=== PATIENT | female | born 1950 | race Caucasian/White ===

== ENCOUNTER 2017-11-13 19:50 | Observation (INO) | payer MEDICARE ==
[~2017-11-13] VITALS: Ht 162.6 cm; Wt 82.7 kg
[~2017-11-13 19:50] MED LIST: ACET325; AMLO5 PO; Adipex-P37.5 MG; BISA10S; BUPR150ER PO; Bactrim Ds Tab1 EACH PO; CIPR250 PO; Carbidopa-Levo1 EAC1 PO; DIAZ2; DIVA500EC PO; DIVA500ER PO; DOCSEN; ENOX30I; FURO20 PO; GABA100; GABA400; HYDR1TAB94 PO; INSR10I; IPRAOI; LEVSOD88 PO; Lasix20 MG PO; METH10; METH10 PO; METO50; MOMCAS15; MULVITA; OXYC5; PROP120ER PO; Percocet 5-3251 EACH PO; ROPI.25; ROPI.25 PO; ROPI2 PO; SERT100 PO; SERT50 PO; TOPI25
[2017-11-13 20:48] LABS: Source, Urine Voided
[2017-11-13 20:49] LABS: BASOPHILS ABSOLUTE AUTO 0.03 K/mm3 (0.00-0.23); BASOPHILS PERCENT AUTO 0 % (0-2); EOSINOPHILS ABSOLUTE AUTO 0.18 K/mm3 (0.00-0.68); EOSINOPHILS PERCENT AUTO 3 % (0-6); Hemoglobin 14.9 g/dL (11.5-16.0); IMMATURE GRAN ABSOLUTE AUTO 0.02 K/mm3 (0.00-0.10); IMMATURE GRAN PERCENT AUTO 0 % (0-1); LYMPHOCYTES ABSOLUTE AUTO 1.57 K/mm3 (0.84-5.20); LYMPHOCYTES PERCENT AUTO 22 % (21-46); MONOCYTES ABSOLUTE AUTO 0.79 K/mm3 (0.16-1.47); MONOCYTES PERCENT AUTO 11 % (4-13); Mean Corpuscular HGB 30.8 pg (26.0-34.0); Mean Corpuscular HGB Conc 32.4 g/dL (31.5-36.5); Mean Corpuscular Volume 95 fL (80-100); Mean Platelet Volume 10.2 fL (9.1-12.4); NEUTROPHILS ABSOLUTE AUTO 4.71 K/mm3 (1.96-9.15); NEUTROPHILS PERCENT AUTO 65 % (41-73); Platelet Count 196 K/mm3 (150-400); RDW Coefficient Variation 13.1 % (11.7-14.2); RDW Standard Deviation 45.7 fL (35.1-46.3); Red Blood Cell Count 4.84 M/mm3 (3.80-5.20)
[2017-11-13 20:57] LABS: Bilirubin, Urine Neg (Neg); Blood, Urine 1+ (Neg); Glucose Qualitative, Urine Neg (Neg); Ketones, Urine Neg (Neg); Leukocyte Esterase, Urine Neg (Neg); Nitrite, Urine Neg (Neg); Protein, Urine Neg (Neg); Specific Gravity, Urine 1.015 (1.003-1.022); Urobilinogen, Urine NORM (Normal)
[2017-11-13 20:58] LABS: International Normalized Ratio 0.94; Prothrombin Time Results 9.8 Sec (9.7-11.5)
[2017-11-13 21:04] LABS: Alanine Aminotransfer (ALT/SGP 11 U/L (12-78); Albumin, Blood 3.9 g/dL (3.4-5.0); Albumin/Globulin Ratio 1.1 (0.8-1.8); Alk Phos 82 U/L (50-136); Anion Gap 7 mmol/L (6-16); Aspartate Aminotrans (AST/SGOT 17 U/L (12-37); Bilirubin, Total 0.3 mg/dL (0.1-1.0); Blood Urea Nitrogen 13 mg/dL (8-24); Bun/Creatinine Ratio 14.4 (12.0-20.0); CO2, Blood 29 mmol/L (21-32); Calcium, Blood 9.6 mg/dL (8.5-10.1); Chloride, Blood 107 mmol/L (98-108); Globulin, Blood 3.7 g/dL (2.2-4.0); Glomerular Filtration Rate >60 (60-); Glucose, Blood 97 mg/dL (70-99); Potassium, Blood 3.8 mmol/L (3.5-5.5); Sodium, Blood 143 mmol/L (136-145); Total Protein, Blood 7.6 g/dL (6.4-8.2)
[2017-11-13 21:14] LABS: Appearance, Urine Clear (Clear); Color, Urine Yellow (P-Yellow)
[2017-11-13 21:15] LABS: Bacteria Rare /hpf; Squamous Epithelial Cells Few /hpf (Few); White Blood Cells, Urine 0-2 /hpf (0-5)
[2017-11-13] MEDS ORDERED: PRAV20 PO (21:19)
[2017-11-13] MEDS ORDERED: MELA3 PO (21:20)
[2017-11-13] MEDS ORDERED: CHOL10002 PO (21:20)
[2017-11-13] MEDS ORDERED: BUPR150ER PO (21:20)
[2017-11-13] MEDS ORDERED: Desyrel50 MG PO (21:20)
[2017-11-14] MEDS ORDERED: CHOL10002 (00:04)
[2017-11-14] MEDS ORDERED: MELA3 PO (00:05)
[2017-11-14] MEDS ORDERED: POLY500 PO (00:06)
[2017-11-14 04:22] LABS: BASOPHILS ABSOLUTE AUTO 0.03 K/mm3 (0.00-0.23); BASOPHILS PERCENT AUTO 1 % (0-2); EOSINOPHILS ABSOLUTE AUTO 0.17 K/mm3 (0.00-0.68); EOSINOPHILS PERCENT AUTO 3 % (0-6); Hematocrit 43.6 % (33.0-51.0); Hemoglobin 13.8 g/dL (11.5-16.0); IMMATURE GRAN ABSOLUTE AUTO 0.02 K/mm3 (0.00-0.10); IMMATURE GRAN PERCENT AUTO 0 % (0-1); LYMPHOCYTES ABSOLUTE AUTO 1.46 K/mm3 (0.84-5.20); LYMPHOCYTES PERCENT AUTO 26 % (21-46); MONOCYTES ABSOLUTE AUTO 0.61 K/mm3 (0.16-1.47); MONOCYTES PERCENT AUTO 11 % (4-13); Mean Corpuscular HGB 30.1 pg (26.0-34.0); Mean Corpuscular HGB Conc 31.7 g/dL (31.5-36.5); Mean Corpuscular Volume 95 fL (80-100); Mean Platelet Volume 10.1 fL (9.1-12.4); NEUTROPHILS ABSOLUTE AUTO 3.43 K/mm3 (1.96-9.15); NEUTROPHILS PERCENT AUTO 60 % (41-73); Platelet Count 182 K/mm3 (150-400); RDW Coefficient Variation 13.2 % (11.7-14.2); RDW Standard Deviation 46.5 fL (35.1-46.3); Red Blood Cell Count 4.58 M/mm3 (3.80-5.20); White Blood Cell Count 5.72 K/mm3 (4.00-11.30)
[2017-11-14 04:54] LABS: Alanine Aminotransfer (ALT/SGP 10 U/L (12-78); Albumin, Blood 3.6 g/dL (3.4-5.0); Albumin/Globulin Ratio 1.1 (0.8-1.8); Alk Phos 74 U/L (50-136); Anion Gap 6 mmol/L (6-16); Aspartate Aminotrans (AST/SGOT 17 U/L (12-37); Bilirubin, Total 0.5 mg/dL (0.1-1.0); Blood Urea Nitrogen 13 mg/dL (8-24); Bun/Creatinine Ratio 15.2 (12.0-20.0); CO2, Blood 30 mmol/L (21-32); Calcium, Blood 8.8 mg/dL (8.5-10.1); Chloride, Blood 107 mmol/L (98-108); Creatinine, Blood 0.86 mg/dL (0.40-1.00); Globulin, Blood 3.3 g/dL (2.2-4.0); Glomerular Filtration Rate >60 (60-); Glucose, Blood 94 mg/dL (70-99); Potassium, Blood 3.9 mmol/L (3.5-5.5); Sodium, Blood 143 mmol/L (136-145); Total Protein, Blood 6.9 g/dL (6.4-8.2)
[2017-11-14] MEDS ORDERED: Super Calcium600 MG PO (09:49)
[2017-11-14] MEDS ORDERED: Bupropion Xl150 MG PO (09:54)
[2017-11-14] MEDS ORDERED: Hydrocodone-Ap1 EA20 PO (10:32)
[2017-11-14] MEDS ORDERED: CHOL10002 PO (16:12)
[2017-11-14] MEDS ORDERED: Aspir 8181 MG PO (16:13)
[2017-11-14] MEDS ORDERED: CLOP75 PO (16:14)
== END 2017-11-14 16:48 | disposition home or self-care (01) ==
LOC: ER 19:50 → PCU 19:51
PROVIDERS: Emergency Medicine; Internal Medicine
DX: G45.9 Transient cerebral ischemic attack, unspecified (principal); G20 Parkinson's disease; G25.0 Essential tremor; I10 Essential (primary) hypertension; E78.5 Hyperlipidemia, unspecified; I35.2 Nonrheumatic aortic (valve) stenosis with insufficiency; R06.02 Shortness of breath; Z79.899 Other long term (current) drug therapy; Z86.2 Personal history of diseases of the blood and blood-forming organs and certain disorders involving the immune mechanism; Z96.89 Presence of other specified functional implants; Z88.5 Allergy status to narcotic agent
CPT/HCPCS: 36415; 70450; 80053; 81001; 82947; 85025; 85610; 92610; 93005; 93010; 93306; 93880; 96372; 96374; 97161; 97165; 99285; G0378; G8978; G8979; G8980; G8987; G8988; G8989; G8996; G8997; G8998; J1650

== ENCOUNTER 2018-02-01 10:01 | Emergency (ER) | payer MEDICARE ==
[~2018-02-01] VITALS: Ht 162.6 cm; Wt 75.3 kg
[~2018-02-01 10:01] MED LIST changes: +Aspir 8181 MG PO; +Bupropion Xl150 MG PO; +CHOL10002; +CHOL10002 PO; +CLOP75 PO; +Desyrel50 MG PO; +Hydrocodone-Ap1 EA20 PO; +MELA3 PO; +POLY500 PO; +PRAV20 PO; +Super Calcium600 MG PO
[2018-02-01] MEDS ORDERED: Roxicodone5 MG PO (13:02)
== END 2018-02-01 13:30 ==
LOC: ER 10:01
DX: S13.9XXA Sprain of joints and ligaments of unspecified parts of neck, initial encounter (principal); S40.021A Contusion of right upper arm, initial encounter; S50.01XA Contusion of right elbow, initial encounter; F17.200 Nicotine dependence, unspecified, uncomplicated; Z79.899 Other long term (current) drug therapy; Z79.82 Long term (current) use of aspirin; W18.30XA Fall on same level, unspecified, initial encounter
CPT/HCPCS: 72040; 73030; 73080

== ENCOUNTER → 2018-03-14 | Outpatient (CLI) | payer MEDICARE ==
[~2018-03-14] MED LIST changes: +Roxicodone5 MG PO
[2018-03-21 19:08] LABS: BENZODIAZEPINES Negative ng/mL (Cutoff=100)
== END ==
LOC: LAB EV 14:42 → LAB SHORT 14:42
PROVIDERS: Student in an Organized Health Care Education/Training Program
DX: Z79.899 Other long term (current) drug therapy (principal)
CPT/HCPCS: G0480

== ENCOUNTER 2019-06-22 05:54 | Emergency (ER) | payer MEDICARE ==
[~2019-06-22] VITALS: Ht 162.6 cm; Wt 77.1 kg
[2019-06-22] MEDS ORDERED: Roxicodone5 MG PO (06:22)
== END 2019-06-22 06:50 | disposition home or self-care (01) ==
LOC: ER 05:54
DX: S60.221A Contusion of right hand, initial encounter (principal); F17.200 Nicotine dependence, unspecified, uncomplicated; Z79.899 Other long term (current) drug therapy; Z79.82 Long term (current) use of aspirin; Z79.02 Long term (current) use of antithrombotics/antiplatelets; W22.8XXA Striking against or struck by other objects, initial encounter
CPT/HCPCS: 29125; 99283-25; A9270

== ENCOUNTER 2019-07-05 16:46 | Emergency (ER) | payer MEDICARE ==
[~2019-07-05] VITALS: Ht 162.6 cm; Wt 78.0 kg
== END 2019-07-05 17:39 | disposition home or self-care (01) ==
LOC: ER 16:46
DX: R79.1 Abnormal coagulation profile (principal); I48.91 Unspecified atrial fibrillation; G20 Parkinson's disease; I10 Essential (primary) hypertension; Z86.73 Personal history of transient ischemic attack (TIA), and cerebral infarction without residual deficits; Z87.891 Personal history of nicotine dependence; Z79.899 Other long term (current) drug therapy; Z79.01 Long term (current) use of anticoagulants; Z79.82 Long term (current) use of aspirin; Z79.891 Long term (current) use of opiate analgesic
CPT/HCPCS: 85610; 99282

== ENCOUNTER → 2020-08-09 | Outpatient (CLI) | payer MEDICARE ==
[~2020-08-09] MED LIST changes: +WARF3 PO
== END | disposition home or self-care (01) ==
LOC: LAB SHORT 14:00 → LAB EV 14:00 → LAB SHORT 08-10 15:03
DX: R14.0 Abdominal distension (gaseous) (principal)
CPT/HCPCS: 87338

== ENCOUNTER → 2021-01-26 | Outpatient (CLI) | payer MEDICARE ==
[2021-01-26 07:56] LABS: BASOPHILS ABSOLUTE AUTO 0.04 K/mm3 (0.00-0.23); BASOPHILS PERCENT AUTO 1 % (0-2); EOSINOPHILS PERCENT AUTO 1 % (0-6); Hematocrit 45.8 % (33.0-51.0); Hemoglobin 14.4 g/dL (11.5-16.0); IMMATURE GRAN ABSOLUTE AUTO 0.02 K/mm3 (0.00-0.10); IMMATURE GRAN PERCENT AUTO 0 % (0-1); LYMPHOCYTES ABSOLUTE AUTO 0.86 K/mm3 (0.84-5.20); LYMPHOCYTES PERCENT AUTO 12 % (21-46); MONOCYTES PERCENT AUTO 9 % (4-13); Mean Corpuscular HGB Conc 31.4 g/dL (31.5-36.5); Mean Corpuscular Volume 99 fL (80-100); Mean Platelet Volume 9.9 fL (9.1-12.4); NEUTROPHILS ABSOLUTE AUTO 5.32 K/mm3 (1.96-9.15); NEUTROPHILS PERCENT AUTO 77 % (41-73); Platelet Count 228 K/mm3 (150-400); RDW Coefficient Variation 15.1 % (11.7-14.2); RDW Standard Deviation 54.4 fL (35.1-46.3); Red Blood Cell Count 4.65 M/mm3 (3.80-5.20); White Blood Cell Count 6.94 K/mm3 (4.00-11.30)
[2021-01-26 08:14] LABS: Albumin, Blood 3.9 g/dL (3.4-5.0); Bilirubin, Total 0.5 mg/dL (0.1-1.0); Bun/Creatinine Ratio 21.8 (12.0-20.0); Creatinine, Blood 1.01 mg/dL (0.40-1.00); Globulin, Blood 4.1 g/dL (2.2-4.0); Potassium, Blood 4.4 mmol/L (3.5-5.5); Thyroid Stimulating Hormone 2.082 uIU/mL (0.360-4.800)
== END | disposition home or self-care (01) ==
LOC: LAB SHORT 07:50
PROVIDERS: Physician Assistant
DX: R53.83 Other fatigue (principal)
CPT/HCPCS: 80053; 83880; 84443; 85025

== ENCOUNTER 2021-04-02 11:00 | Day surgery (SDC) | payer MEDICARE ==
[~2021-04-02] VITALS: Ht 162.6 cm; Wt 85.9 kg
[~2021-04-02 11:00] MED LIST changes: +CARBLEV25 PO; +GABA300 PO; +JANTOVEN3 M1 PO; +PRAM.125 PO; +WARF1 PO
[2021-04-02] MEDS ORDERED: Prinivil10 MG (12:11)
--- NOTE | 2021-04-02 13:38 | NUR ---
04/02/21 1338 Shruthi Read DESCENDING POLYP UNRETRIEVED, DR. DEWITT AWARE.
== END 2021-04-02 14:33 | disposition home or self-care (01) ==
LOC: ORSCSDS 11:00
PROVIDERS: Internal Medicine Gastroenterology
PROC: 0DB48ZX Excision of Esophagogastric Junction, Via Natural or Artificial Opening Endoscopic, Diagnostic (ICD-10-PCS; principal; 2021-04-02 12:30)
PROC: 0DBN8ZX Excision of Sigmoid Colon, Via Natural or Artificial Opening Endoscopic, Diagnostic (ICD-10-PCS; principal; 2021-04-02 12:30)
PROC: 0DB68ZX Excision of Stomach, Via Natural or Artificial Opening Endoscopic, Diagnostic (ICD-10-PCS; principal; 2021-04-02 12:30)
PROC: 0DBM8ZX Excision of Descending Colon, Via Natural or Artificial Opening Endoscopic, Diagnostic (ICD-10-PCS; principal; 2021-04-02 12:30)
PROC: 0DBK8ZX Excision of Ascending Colon, Via Natural or Artificial Opening Endoscopic, Diagnostic (ICD-10-PCS; principal; 2021-04-02 12:30)
PROC: 0DBP8ZX Excision of Rectum, Via Natural or Artificial Opening Endoscopic, Diagnostic (ICD-10-PCS; principal; 2021-04-02 12:30)
DX: Z12.11 Encounter for screening for malignant neoplasm of colon (principal); R68.81 Early satiety; R10.84 Generalized abdominal pain; D12.2 Benign neoplasm of ascending colon; D12.5 Benign neoplasm of sigmoid colon; K63.5 Polyp of colon; D37.4 Neoplasm of uncertain behavior of colon; K57.30 Diverticulosis of large intestine without perforation or abscess without bleeding; K22.2 Esophageal obstruction; K29.70 Gastritis, unspecified, without bleeding; G47.33 Obstructive sleep apnea (adult) (pediatric); I10 Essential (primary) hypertension; Z87.891 Personal history of nicotine dependence; J44.9 Chronic obstructive pulmonary disease, unspecified; E66.9 Obesity, unspecified; Z68.33 Body mass index [BMI] 33.0-33.9, adult; Z79.899 Other long term (current) drug therapy
CPT/HCPCS: 88305; 88312; 88342; J2704; J7120

== ENCOUNTER 2021-12-31 22:53 | Emergency (ER) | payer MEDICARE ==
[~2021-12-31] VITALS: Ht 162.6 cm; Wt 86.2 kg
[~2021-12-31 22:53] MED LIST changes: +Prinivil10 MG
[2021-12-31 23:46] LABS: BASOPHILS ABSOLUTE AUTO 0.04 K/mm3 (0.00-0.23); BASOPHILS PERCENT AUTO 1 % (0-2); EOSINOPHILS PERCENT AUTO 4 % (0-6); Hemoglobin 13.8 g/dL (11.5-16.0); IMMATURE GRAN ABSOLUTE AUTO 0.01 K/mm3 (0.00-0.10); IMMATURE GRAN PERCENT AUTO 0 % (0-1); LYMPHOCYTES ABSOLUTE AUTO 1.33 K/mm3 (0.84-5.20); LYMPHOCYTES PERCENT AUTO 24 % (21-46); MONOCYTES ABSOLUTE AUTO 0.59 K/mm3 (0.16-1.47); MONOCYTES PERCENT AUTO 11 % (4-13); Mean Corpuscular HGB 30.6 pg (26.0-34.0); Mean Corpuscular HGB Conc 31.4 g/dL (31.5-36.5); Mean Corpuscular Volume 98 fL (80-100); Mean Platelet Volume 9.7 fL (9.1-12.4); NEUTROPHILS ABSOLUTE AUTO 3.33 K/mm3 (1.96-9.15); NEUTROPHILS PERCENT AUTO 61 % (41-73); Platelet Count 200 K/mm3 (150-400); RDW Coefficient Variation 14.4 % (11.7-14.2); RDW Standard Deviation 51.9 fL (35.1-46.3); Red Blood Cell Count 4.51 M/mm3 (3.80-5.20)
[2022-01-01] LABS: Bun/Creatinine Ratio 20.1 (12.0-20.0); Creatinine, Blood 0.94 mg/dL (0.40-1.00); International Normalized Ratio 2.24; Potassium, Blood 4.2 mmol/L (3.5-5.5); Prothrombin Time Results 22.3 Sec (9.7-11.5)
== END 2022-01-01 01:10 | disposition home or self-care (01) ==
LOC: ER 22:53
PROVIDERS: Student in an Organized Health Care Education/Training Program
DX: S30.1XXA Contusion of abdominal wall, initial encounter (principal); Z88.5 Allergy status to narcotic agent; I10 Essential (primary) hypertension; I48.91 Unspecified atrial fibrillation; F17.210 Nicotine dependence, cigarettes, uncomplicated; Z79.899 Other long term (current) drug therapy; W18.30XA Fall on same level, unspecified, initial encounter
CPT/HCPCS: 36415; 74177; 80048; 85025; 85610; 96374; 99284-25; J2270; Q9967

== ENCOUNTER 2022-01-05 16:53 | Inpatient (IN) | payer MEDICARE ==
[~2022-01-05] VITALS: Ht 162.6 cm; Wt 86.2 kg
[2022-01-05 17:20] LABS: Calcium, Ionized (POC) 1.19 mmol/L (1.10-1.46); Chloride (POC) 104 mmol/L (98-108); Creatinine (POC) 0.9 mg/dL (0.6-1.0); Glucose (ISTAT POC) 123 mg/dL (70-99); Hemoglobin (POC) 7.1 g/dL (12.0-16.0); Potassium (POC) 3.9 mmol/L (3.5-5.5); Sodium (POC) 141 mmol/L (135-148); Total CO2 (POC) 29 mmol/L (21-32)
[2022-01-05 17:23] LABS: BASOPHILS ABSOLUTE AUTO 0.05 K/mm3 (0.00-0.23); BASOPHILS PERCENT AUTO 1 % (0-2); EOSINOPHILS ABSOLUTE AUTO 0.21 K/mm3 (0.00-0.68); EOSINOPHILS PERCENT AUTO 2 % (0-6); Hemoglobin 7.1 g/dL (11.5-16.0); IMMATURE GRAN ABSOLUTE AUTO 0.07 K/mm3 (0.00-0.10); IMMATURE GRAN PERCENT AUTO 1 % (0-1); LYMPHOCYTES ABSOLUTE AUTO 1.55 K/mm3 (0.84-5.20); LYMPHOCYTES PERCENT AUTO 16 % (21-46); MONOCYTES ABSOLUTE AUTO 0.71 K/mm3 (0.16-1.47); MONOCYTES PERCENT AUTO 7 % (4-13); Mean Corpuscular HGB 31.1 pg (26.0-34.0); Mean Corpuscular HGB Conc 30.9 g/dL (31.5-36.5); Mean Corpuscular Volume 101 fL (80-100); Mean Platelet Volume 9.5 fL (9.1-12.4); NEUTROPHILS ABSOLUTE AUTO 7.08 K/mm3 (1.96-9.15); NEUTROPHILS PERCENT AUTO 73 % (41-73); NRBC ABSOLUTE 0.04 K/mm3 (0.00-0.02); NRBC Auto 0.4 /100 WBC (0.0-0.2); Platelet Count 267 K/mm3 (150-400); RDW Coefficient Variation 15.2 % (11.7-14.2); RDW Standard Deviation 54.5 fL (35.1-46.3); Red Blood Cell Count 2.28 M/mm3 (3.80-5.20); White Blood Cell Count 9.67 K/mm3 (4.00-11.30)
[2022-01-05 17:37] LABS: International Normalized Ratio 3.34; Prothrombin Time Results 32.4 Sec (9.7-11.5)
[2022-01-05 17:45] LABS: Alanine Aminotransfer (ALT/SGP 20 U/L (12-78); Albumin, Blood 3.2 g/dL (3.4-5.0); Albumin/Globulin Ratio 0.9 (0.8-1.8); Alk Phos 105 U/L (50-136); Anion Gap 5 mmol/L (6-16); Aspartate Aminotrans (AST/SGOT 30 U/L (12-37); Blood Urea Nitrogen 30 mg/dL (8-24); Bun/Creatinine Ratio 33.9 (12.0-20.0); CO2, Blood 31 mmol/L (21-32); Calcium, Blood 8.7 mg/dL (8.5-10.1); Chloride, Blood 107 mmol/L (98-108); Creatinine, Blood 0.88 mg/dL (0.40-1.00); Globulin, Blood 3.6 g/dL (2.2-4.0); Glomerular Filtration Rate >60 (60-); Glucose, Blood 126 mg/dL (70-99); Potassium, Blood 3.9 mmol/L (3.5-5.5); Sodium, Blood 143 mmol/L (136-145); Total Protein, Blood 6.8 g/dL (6.4-8.2)
[2022-01-05] MEDS ORDERED: OMEP20ER PO (22:24)
[2022-01-05] MEDS ORDERED: MELA3 PO (22:26)
[2022-01-05] MEDS ORDERED: DIAZ2 PO (22:30)
[2022-01-05 22:46] LABS: Hematocrit 21.3 % (33.0-51.0); Hemoglobin 6.5 g/dL (11.5-16.0)
[2022-01-06 05:28] LABS: BASOPHILS ABSOLUTE AUTO 0.06 K/mm3 (0.00-0.23); BASOPHILS PERCENT AUTO 1 % (0-2); EOSINOPHILS ABSOLUTE AUTO 0.18 K/mm3 (0.00-0.68); EOSINOPHILS PERCENT AUTO 2 % (0-6); Hemoglobin 7.9 g/dL (11.5-16.0); IMMATURE GRAN PERCENT AUTO 1 % (0-1); LYMPHOCYTES ABSOLUTE AUTO 1.05 K/mm3 (0.84-5.20); LYMPHOCYTES PERCENT AUTO 13 % (21-46); MONOCYTES ABSOLUTE AUTO 0.68 K/mm3 (0.16-1.47); MONOCYTES PERCENT AUTO 9 % (4-13); Mean Corpuscular HGB 30.3 pg (26.0-34.0); Mean Corpuscular HGB Conc 31.6 g/dL (31.5-36.5); Mean Platelet Volume 9.4 fL (9.1-12.4); NEUTROPHILS ABSOLUTE AUTO 5.84 K/mm3 (1.96-9.15); NEUTROPHILS PERCENT AUTO 74 % (41-73); NRBC ABSOLUTE 0.06 K/mm3 (0.00-0.02); NRBC Auto 0.8 /100 WBC (0.0-0.2); Platelet Count 232 K/mm3 (150-400); RDW Coefficient Variation 17.1 % (11.7-14.2); RDW Standard Deviation 58.6 fL (35.1-46.3); Red Blood Cell Count 2.61 M/mm3 (3.80-5.20); White Blood Cell Count 7.91 K/mm3 (4.00-11.30)
[2022-01-06 05:29] LABS: Mean Corpuscular Volume 96 fL (80-100)
[2022-01-06 06:00] LABS: Alanine Aminotransfer (ALT/SGP 13 U/L (12-78); Albumin/Globulin Ratio 0.8 (0.8-1.8); Alk Phos 98 U/L (50-136); Anion Gap 6 mmol/L (6-16); Aspartate Aminotrans (AST/SGOT 36 U/L (12-37); Bilirubin, Total 1.6 mg/dL (0.1-1.0); Blood Urea Nitrogen 22 mg/dL (8-24); Bun/Creatinine Ratio 28.7 (12.0-20.0); CO2, Blood 30 mmol/L (21-32); Calcium, Blood 8.5 mg/dL (8.5-10.1); Chloride, Blood 108 mmol/L (98-108); Creatinine, Blood 0.77 mg/dL (0.40-1.00); Globulin, Blood 3.7 g/dL (2.2-4.0); Glomerular Filtration Rate >60 (60-); Glucose, Blood 105 mg/dL (70-99); Potassium, Blood 4.2 mmol/L (3.5-5.5); Sodium, Blood 144 mmol/L (136-145); Total Protein, Blood 6.7 g/dL (6.4-8.2)
--- NOTE | 2022-01-06 06:15 | NUR ---
SHIFT SUMMARY PT ADMITTED TO ROOM 304 FROM ER, A/O X 4, REPORTS PAIN TO R SIDE ABD WITH MOVEMENT, DENIES NEED FOR PAIN MED. LARGE HEMATOMA NOTED FROM MID L ABD AND COMPLETELY COVERING R SIDE OF ABD AND MOST OF R SIDE OF BACK. RUQ WITH BULGE NOTED AND VERY FIRM. FFP AND 2 UNITS PRBC TRANSFUSED PER ORDERS. PT HAD C/O SOME ITCHING WITH THE FFP IN THE ER AND WAS MEDICATED WITH BENADRYL PER MAR. PT REPORTED ITCHING WAS GONE AFTER. VSS, WICK EXTERNAL CATHETER IN PLACE TO PROMOTE BEDREST AND PREVENT AGITATION TO THE HEMATOMA. VSS, SR/ST NOTED ON TELE, ANTICIPATE D/C WHEN MEDICALLY STABLE.
[2022-01-06 11:06] LABS: Hematocrit 26.3 % (33.0-51.0); Hemoglobin 8.2 g/dL (11.5-16.0)
--- NOTE | 2022-01-06 15:37 | NUR ---
[address] FOR DR F/U WITH DR MARTINEZ- PLACED CONSULT WITH DR LORENZO TO EVAL HEMATOMA. HE WAS NOT AWARE PT WAS NEEDING TO BE FOLLOWED. EVALUATED AND INSTRUCTED TO WEAR ABD BINDER AND FOLLOW H/H. PT MAY START GEN DIET, NO SG INTERVENTION NEEDED.
[2022-01-06 16:32] LABS: Hematocrit 26.8 % (33.0-51.0); Hemoglobin 8.5 g/dL (11.5-16.0)
--- NOTE | 2022-01-06 18:44 | NUR ---
SUMMARY- PT A/O X4. UP IN CHAIR MOST OF THE DAY. LG SOFT HEMATOMA TO ENTIRE ABD. MARKED WITH TEREZA 0900 THIS AM TO ELSA SPREAD. H/H STABALIZED S/P PRBC'S OVERNIGHT AND FFP. VSS. CONSULT DR HUGHES HEM. INSTRUCTED TO WEAR ABD BINDER AND ELSA H/H. PT'S PAIN CONTROLLED WITH FENT THIS AM AND SWITCHED TO ORAL NARC. STARTED GEN DIET, TOLERATING FOOD AND FLUIDS. VOIDING USING PUREWIC MOST OF THE DAY, THAN STARTED GETTING UP TO BSC SBA GOOD STRENGTH AND STEADY ON FEET.
[2022-01-07 00:29] LABS: Hematocrit 26.2 % (33.0-51.0); Hemoglobin 8.2 g/dL (11.5-16.0)
--- NOTE | 2022-01-07 06:04 | NUR ---
SHIFT SUMMARY PT RESTED WELL, MED PER NOV X 1 FOR C/O PAIN TO ABD HEMATOMA, ABD BINDER IN PLACE. PT MARGARETTE PO WELL, VOIDING WITHOUT DIFFICULTY, USING WICK EXTERNAL CATHETER AT NIGHT. VSS, PT REPOSITIONED FOR COMFORT, ANTICIPATE D/C WHEN MEDICALLY STABLE.
[2022-01-07 09:19] LABS: BASOPHILS ABSOLUTE AUTO 0.02 K/mm3 (0.00-0.23); BASOPHILS PERCENT AUTO 0 % (0-2); EOSINOPHILS ABSOLUTE AUTO 0.15 K/mm3 (0.00-0.68); EOSINOPHILS PERCENT AUTO 2 % (0-6); Hemoglobin 8.4 g/dL (11.5-16.0); IMMATURE GRAN ABSOLUTE AUTO 0.06 K/mm3 (0.00-0.10); IMMATURE GRAN PERCENT AUTO 1 % (0-1); LYMPHOCYTES ABSOLUTE AUTO 1.24 K/mm3 (0.84-5.20); LYMPHOCYTES PERCENT AUTO 15 % (21-46); MONOCYTES ABSOLUTE AUTO 0.72 K/mm3 (0.16-1.47); MONOCYTES PERCENT AUTO 9 % (4-13); Mean Corpuscular HGB 30.5 pg (26.0-34.0); Mean Corpuscular HGB Conc 31.1 g/dL (31.5-36.5); Mean Corpuscular Volume 98 fL (80-100); Mean Platelet Volume 9.3 fL (9.1-12.4); NEUTROPHILS ABSOLUTE AUTO 5.94 K/mm3 (1.96-9.15); NEUTROPHILS PERCENT AUTO 73 % (41-73); NRBC ABSOLUTE 0.04 K/mm3 (0.00-0.02); NRBC Auto 0.5 /100 WBC (0.0-0.2); Platelet Count 257 K/mm3 (150-400); RDW Coefficient Variation 17.8 % (11.7-14.2); RDW Standard Deviation 60.5 fL (35.1-46.3); Red Blood Cell Count 2.75 M/mm3 (3.80-5.20); White Blood Cell Count 8.13 K/mm3 (4.00-11.30)
[2022-01-07 09:42] LABS: Alanine Aminotransfer (ALT/SGP 14 U/L (12-78); Albumin/Globulin Ratio 0.8 (0.8-1.8); Alk Phos 97 U/L (50-136); Anion Gap 1 mmol/L (6-16); Aspartate Aminotrans (AST/SGOT 29 U/L (12-37); Bilirubin, Total 1.1 mg/dL (0.1-1.0); Blood Urea Nitrogen 21 mg/dL (8-24); Bun/Creatinine Ratio 25.7 (12.0-20.0); CO2, Blood 33 mmol/L (21-32); Calcium, Blood 8.8 mg/dL (8.5-10.1); Chloride, Blood 107 mmol/L (98-108); Creatinine, Blood 0.82 mg/dL (0.40-1.00); Glomerular Filtration Rate >60 (60-); Glucose, Blood 115 mg/dL (70-99); Magnesium, Blood 1.9 mg/dL (1.6-2.4); Phosphorus, Blood 2.7 mg/dL (2.5-4.9); Potassium, Blood 4.4 mmol/L (3.5-5.5); Sodium, Blood 141 mmol/L (136-145)
--- NOTE | 2022-01-07 11:51 | NUR ---
Pt. is sitting up in a recliner and welcomes my visit. Pt. is pleasant and chatty. Pt. doesn't seem overly concerned about her recovery but displays evidence of concern about what caused her to fall at home. Listen empatheticially and establish personal rapport. Explore the pts. spiritual support system, and find there is strong support from family and friends who are people of bean. Prayed for pt. Pt. displayed evidence of renewed purpose for being in the hospital, and verbalized gratitude for the spiritual care visit.
[2022-01-07 16:27] LABS: Hematocrit 28.2 % (33.0-51.0); Hemoglobin 8.9 g/dL (11.5-16.0)
--- NOTE | 2022-01-07 18:32 | NUR ---
SHIFT SUMMARY: NO ACUTE EVENTS. NO EVENTS ON TELEMETRY, SR 80'S. TREMULOUS FROM PARKINSONS AND ESSENTIAL TREMOR. GETTING UP TO BR DURING THE DAY, USING PUREWICK AT HS. ABD BINDER IN PLACE. SEVERE ECCHYMOSIS FROM JUST BELOW BREASTS TO PUBIS, AND L POST AXILLARY TO R SPINE, IN VARIOUS STAGES OF RESOLUTION. POSSIBLE D/C MONDAY. NEEDS ASSISTANCE/PROGRAM INFORMATION FOR HELP WITH COSTS OF ANTICOAGULATION OTHER THAN COUMADIN.
[2022-01-08 00:44] LABS: Hemoglobin 8.2 g/dL (11.5-16.0)
--- NOTE | 2022-01-08 04:41 | NUR ---
SHIFT SUMMARY: ESSENTIAL TREMORS. FURINTURE WALKS TO BATHROOM, ENCOURAGED USE OF FWW. SBA FOR SAFETY. CALLS APPROPIATELY. ABD BINDER IN PLACE. ECCYMHOSIS CROSSING LINE PLACED FOR TRACING. PATIENT REQUESTED PUREWICK AT HS. SERIAL HGB/HCT STABLE. WCTM.
[2022-01-08 08:25] LABS: Hematocrit 26.7 % (33.0-51.0); Hemoglobin 8.3 g/dL (11.5-16.0)
--- NOTE | 2022-01-08 12:23 | NUR ---
PATIENT GIVEN CARD FOR 30 DAY FREE TRIAL OF XARELTO. WILL NEED TO FOLLOW UP WITH [facility] CARE MANAGERS FOR FURTHER FINANCIAL ASSISTANCE WITH MEDICATION; VERBALIZED UNDERSTANDING OF THIS.
[2022-01-08 16:33] LABS: Hematocrit 28.2 % (33.0-51.0); Hemoglobin 8.6 g/dL (11.5-16.0)
--- NOTE | 2022-01-08 18:38 | NUR ---
SHIFT SUMMARY: NO ACUTE EVENTS. TELEMETRY D/C'D. DENIED PAIN. AMBULATING WITH FWW IN ROOM AND HALLWAY, GAIT STEADY, KNOWS HER LIMITS. GETTING UP TO BR, HAD BM AFTER MIRALAX. TOLERATING PO, NO N/V. ABD HEMATOMA HAS EXTENDED SLIGHTLY DOWN R UPPER THIGH AND L BUTTOCK. GIVEN INFORMATION ABOUT XARELTO PROGRAMS TO OFF SET DRUG COSTS BUT WOULD BENEFIT FROM FURTHER INFORMATION FROM CARE MANAGERS.
[2022-01-09 00:22] LABS: Hematocrit 27.4 % (33.0-51.0); Hemoglobin 8.4 g/dL (11.5-16.0)
--- NOTE | 2022-01-09 05:41 | NUR ---
SHIFT SUMMARY - NO SIGNIFICANT EVENTS ON NOC. PAIN TREATED PER EMAR. AMBULATING WELL WITH USE OF FWW. KNOWS LIMITATIONS. WALKED IN [place] TONIGHT. ECCHYMOSIS REMAINS UNCHANGED STILL OVER ORIGINAL OUTLINE TRACING. PUREWICK AT NIGHT. PAIN TREATED PER EMAR. ECTM.
[2022-01-09 08:51] LABS: Hematocrit 30.2 % (33.0-51.0); Hemoglobin 9.2 g/dL (11.5-16.0)
[2022-01-09 16:42] LABS: Hematocrit 29.5 % (33.0-51.0); Hemoglobin 8.9 g/dL (11.5-16.0)
--- NOTE | 2022-01-09 17:02 | NUR ---
SHIFT SUMMARY: NO ACUTE EVENTS. H/H STABLE, NO S/S OF BLEEDING. C/O ALARCON, TYLENOL GIVEN WITH SOME RELIEF. STATED SHE SLEPT POORLY LAST NIGHT D/T NOISE ON UNIT. GETTING UP TO BR AND RECLINER WITH FWW AND SBA. APPETITE OK, NO N/V, HAD BM TODAY. WILL LIKELY D/C HOME TOMORROW.
--- NOTE | 2022-01-10 04:54 | NUR ---
Patient is alert and oriented x4 ambulatory. She walks around her room, educated patient about fall safety. She has bruising all over her abdomen and back from a fall at home. Complains of head ache pain, prn pain medication given. Patient also is feeling anxious, prn valium given. Patient is now sleeping, no signs of distress. Call light within reach.
[2022-01-10] MEDS ORDERED: ELIQUIS5 M2 PO (16:41)
--- NOTE | 2022-01-10 18:08 | NUR ---
DISCHARGE SUMMARY: LATE ENTRY FOR 1704 PATIENT REPORTED PAIN WITH MOVEMENT, BUT ABLE TO AMBULATE WITHOUT DIFFICULTY AND APPEARED COMFORTABLE AT REST. PATIENT CONTINUES TO HAVE A PROMINENT HARD HEMATOMA ON HER RIGHT, UPPER ABDOMEN ON HER SIDE. PATIENT REPORTS MINIMAL IMPROVEMENT. SPOKE WITH DR. HUGHES, PATIENT IS FREE TO TAKE THE BINDER OFF OR WEAR IT FOR COMFORT. PATIENT RECEIVED ELIQUIS RX FROM [facility]. EDUCATION PROVIDED ON THIS MEDICATION BY DR. STEPHENSON, PHARMACIST AND RN. PATIENT REPORTED UNDERSTANDING. OTHER PRESCRIPTION REFILLS SENT TO [facility] ON PER PATIENT REQUEST. DISCHARGE EDUCATION PROVIDED TO THE PATIENT. DISCHARGE APPOINTMENT ARRANGED BY [facility] CARE MANAGEMENT. ALL QUESTIONS AND CONCERNS ADDRESSED. PATIENT DISCHARGED IN WHEELCHAIR WITH STUDENT TO PATIENT'S RIDE. PATIENT STABLE AT TIME OF DISCHARGE.
== END 2022-01-10 17:00 | disposition home or self-care (01) | DRG 605 ==
LOC: ER 16:53 → ERHOLD 19:46 → MEDS 19:46 → ENPENDDIS 01-10 16:21 → MEDS 01-10 17:00
PROVIDERS: Family Medicine; Hospitalist; Physician Assistant; ADMIT Internal Medicine
PROC: 30233L1 Transfusion of Nonautologous Fresh Plasma into Peripheral Vein, Percutaneous Approach (ICD-10-PCS; principal; 2022-01-05)
PROC: 30233N1 Transfusion of Nonautologous Red Blood Cells into Peripheral Vein, Percutaneous Approach (ICD-10-PCS; 2022-01-05)
PROC: 30233K1 Transfusion of Nonautologous Frozen Plasma into Peripheral Vein, Percutaneous Approach (ICD-10-PCS; 2022-01-05)
DX: S30.1XXA Contusion of abdominal wall, initial encounter (principal); I48.20 Chronic atrial fibrillation, unspecified; G20 Parkinson's disease; F17.210 Nicotine dependence, cigarettes, uncomplicated; D64.9 Anemia, unspecified; G25.0 Essential tremor; K59.00 Constipation, unspecified; I10 Essential (primary) hypertension; Z88.5 Allergy status to narcotic agent; Z98.1 Arthrodesis status; Z86.718 Personal history of other venous thrombosis and embolism; Z98.890 Other specified postprocedural states; Z90.89 Acquired absence of other organs; Z79.899 Other long term (current) drug therapy; Z79.01 Long term (current) use of anticoagulants; Z86.73 Personal history of transient ischemic attack (TIA), and cerebral infarction without residual deficits; Z90.49 Acquired absence of other specified parts of digestive tract; Z90.710 Acquired absence of both cervix and uterus
CPT/HCPCS: 36415; 36430; 74177; 80047; 80053; 83735; 84100; 85014; 85018; 85025; 85610; 86850; 86900; 86901; 86923; 96365; 96375; 99285-25; A9270; J1200; J3010; J3430; P9016; P9059; Q9967

== ENCOUNTER 2022-01-25 16:29 | Emergency (ER) | payer MEDICARE ==
[~2022-01-25] VITALS: Ht 162.6 cm; Wt 90.7 kg
[~2022-01-25 16:29] MED LIST changes: +DIAZ2 PO; +ELIQUIS5 M2 PO; +OMEP20ER PO
[2022-01-25 17:20] LABS: BASOPHILS ABSOLUTE AUTO 0.05 K/mm3 (0.00-0.23); BASOPHILS PERCENT AUTO 1 % (0-2); EOSINOPHILS ABSOLUTE AUTO 0.12 K/mm3 (0.00-0.68); EOSINOPHILS PERCENT AUTO 2 % (0-6); Hematocrit 41.6 % (33.0-51.0); Hemoglobin 12.6 g/dL (11.5-16.0); IMMATURE GRAN ABSOLUTE AUTO 0.03 K/mm3 (0.00-0.10); IMMATURE GRAN PERCENT AUTO 0 % (0-1); LYMPHOCYTES ABSOLUTE AUTO 0.94 K/mm3 (0.84-5.20); LYMPHOCYTES PERCENT AUTO 12 % (21-46); MONOCYTES ABSOLUTE AUTO 0.66 K/mm3 (0.16-1.47); MONOCYTES PERCENT AUTO 8 % (4-13); Mean Corpuscular HGB 31.4 pg (26.0-34.0); Mean Corpuscular HGB Conc 30.3 g/dL (31.5-36.5); Mean Corpuscular Volume 104 fL (80-100); Mean Platelet Volume 9.2 fL (9.1-12.4); NEUTROPHILS ABSOLUTE AUTO 6.29 K/mm3 (1.96-9.15); NEUTROPHILS PERCENT AUTO 78 % (41-73); Platelet Count 276 K/mm3 (150-400); RDW Coefficient Variation 18.9 % (11.7-14.2); Red Blood Cell Count 4.01 M/mm3 (3.80-5.20); White Blood Cell Count 8.09 K/mm3 (4.00-11.30)
[2022-01-25 17:38] LABS: Alanine Aminotransfer (ALT/SGP 25 U/L (12-78); Albumin, Blood 3.9 g/dL (3.4-5.0); Albumin/Globulin Ratio 0.9 (0.8-1.8); Alk Phos 113 U/L (50-136); Anion Gap 3 mmol/L (6-16); Aspartate Aminotrans (AST/SGOT 34 U/L (12-37); Bilirubin, Total 0.5 mg/dL (0.1-1.0); Blood Urea Nitrogen 16 mg/dL (8-24); Bun/Creatinine Ratio 19.3 (12.0-20.0); CO2, Blood 34 mmol/L (21-32); Calcium, Blood 9.6 mg/dL (8.5-10.1); Chloride, Blood 105 mmol/L (98-108); Creatinine, Blood 0.83 mg/dL (0.40-1.00); Globulin, Blood 4.3 g/dL (2.2-4.0); Glomerular Filtration Rate >60 (60-); Glucose, Blood 102 mg/dL (70-99); Potassium, Blood 4.2 mmol/L (3.5-5.5); Sodium, Blood 142 mmol/L (136-145); Total Protein, Blood 8.2 g/dL (6.4-8.2)
[2022-01-25] MEDS ORDERED: AMANTADINE100 M6 PO (19:02)
== END 2022-01-25 19:58 | disposition home or self-care (01) ==
LOC: ER 16:29
PROVIDERS: Physician Assistant
DX: S30.1XXA Contusion of abdominal wall, initial encounter (principal); I10 Essential (primary) hypertension; G20 Parkinson's disease; I48.91 Unspecified atrial fibrillation; F17.210 Nicotine dependence, cigarettes, uncomplicated; Z86.73 Personal history of transient ischemic attack (TIA), and cerebral infarction without residual deficits; Z86.718 Personal history of other venous thrombosis and embolism; Z79.01 Long term (current) use of anticoagulants; Z79.899 Other long term (current) drug therapy; Z88.5 Allergy status to narcotic agent; W19.XXXA Unspecified fall, initial encounter; Y92.9 Unspecified place or not applicable
CPT/HCPCS: 36415; 71045; 74177; 80053; 85025; Q9967

== ENCOUNTER 2023-04-02 11:48 | Emergency (ER) | payer MEDICARE ==
[~2023-04-02] VITALS: Ht 162.6 cm; Wt 81.7 kg
[~2023-04-02 11:48] MED LIST changes: +AMANTADINE100 M6 PO; -Prinivil10 MG; +Prinivil10 MG PO
[2023-04-02] MEDS ORDERED: XARELTO20 M1 PO (12:17)
[2023-04-02] MEDS ORDERED: Lovastatin20 MG PO (12:18)
[2023-04-02 12:19] LABS: BASOPHILS ABSOLUTE AUTO 0.04 K/mm3 (0.00-0.23); BASOPHILS PERCENT AUTO 1 % (0-2); EOSINOPHILS ABSOLUTE AUTO 0.21 K/mm3 (0.00-0.68); EOSINOPHILS PERCENT AUTO 3 % (0-6); Hematocrit 44.5 % (33.0-51.0); Hemoglobin 14.3 g/dL (11.5-16.0); IMMATURE GRAN ABSOLUTE AUTO 0.05 K/mm3 (0.00-0.10); IMMATURE GRAN PERCENT AUTO 1 % (0-1); LYMPHOCYTES ABSOLUTE AUTO 2.01 K/mm3 (0.84-5.20); LYMPHOCYTES PERCENT AUTO 25 % (21-46); MONOCYTES ABSOLUTE AUTO 0.88 K/mm3 (0.16-1.47); MONOCYTES PERCENT AUTO 11 % (4-13); Mean Corpuscular HGB 30.6 pg (26.0-34.0); Mean Corpuscular HGB Conc 32.1 g/dL (31.5-36.5); Mean Corpuscular Volume 95 fL (80-100); Mean Platelet Volume 9.8 fL (9.1-12.4); NEUTROPHILS ABSOLUTE AUTO 4.77 K/mm3 (1.96-9.15); NEUTROPHILS PERCENT AUTO 60 % (41-73); Platelet Count 205 K/mm3 (150-400); RDW Coefficient Variation 14.4 % (11.7-14.2); RDW Standard Deviation 49.7 fL (35.1-46.3); Red Blood Cell Count 4.68 M/mm3 (3.80-5.20); White Blood Cell Count 7.96 K/mm3 (4.00-11.30)
[2023-04-02] MEDS ORDERED: PRAM.125 PO (12:21)
[2023-04-02 12:30] VITALS: BP 145/77
[2023-04-02 12:36] LABS: Albumin, Blood 3.3 g/dL (3.4-5.0); Albumin/Globulin Ratio 0.9 (0.8-1.8); Bilirubin, Total 0.2 mg/dL (0.1-1.0); Bun/Creatinine Ratio 23.2 (12.0-20.0); Creatinine, Blood 0.95 mg/dL (0.40-1.00); Globulin, Blood 3.8 g/dL (2.2-4.0); Potassium, Blood 4.3 mmol/L (3.5-5.5); Total Protein, Blood 7.1 g/dL (6.4-8.2)
== END 2023-04-02 14:50 | disposition home or self-care (01) ==
LOC: ER 11:48
PROVIDERS: Emergency Medicine
DX: S09.90XA Unspecified injury of head, initial encounter (principal); M54.2 Cervicalgia; W10.9XXA Fall (on) (from) unspecified stairs and steps, initial encounter; G20 Parkinson's disease; I10 Essential (primary) hypertension; I48.91 Unspecified atrial fibrillation; F17.210 Nicotine dependence, cigarettes, uncomplicated; Z88.5 Allergy status to narcotic agent; Z79.01 Long term (current) use of anticoagulants; Z79.899 Other long term (current) drug therapy
CPT/HCPCS: 70450; 72125; 80053; 85025; 99285-25

== ENCOUNTER 2024-04-12 08:38 | Emergency (ER) | payer OTHER ==
[~2024-04-12] VITALS: Ht 162.6 cm; Wt 86.2 kg
[~2024-04-12 08:38] MED LIST changes: +Flomax0.4 MG PO; +Lovastatin20 MG PO; +XARELTO20 M1 PO
[2024-04-12 09:38] VITALS: BP 102/56
[2024-04-12 10:18] LABS: BASOPHILS ABSOLUTE AUTO 0.03 K/mm3 (0.00-0.23); BASOPHILS PERCENT AUTO 0 % (0-2); EOSINOPHILS ABSOLUTE AUTO 0.08 K/mm3 (0.00-0.68); EOSINOPHILS PERCENT AUTO 1 % (0-6); Hematocrit 42.4 % (33.0-51.0); Hemoglobin 13.2 g/dL (11.5-16.0); IMMATURE GRAN ABSOLUTE AUTO 0.03 K/mm3 (0.00-0.10); IMMATURE GRAN PERCENT AUTO 0 % (0-1); LYMPHOCYTES ABSOLUTE AUTO 0.87 K/mm3 (0.84-5.20); LYMPHOCYTES PERCENT AUTO 11 % (21-46); MONOCYTES ABSOLUTE AUTO 0.66 K/mm3 (0.16-1.47); MONOCYTES PERCENT AUTO 9 % (4-13); Mean Corpuscular HGB 31.9 pg (26.0-34.0); Mean Corpuscular HGB Conc 31.1 g/dL (31.5-36.5); Mean Corpuscular Volume 102 fL (80-100); Mean Platelet Volume 9.8 fL (9.1-12.4); NEUTROPHILS ABSOLUTE AUTO 5.95 K/mm3 (1.96-9.15); NEUTROPHILS PERCENT AUTO 78 % (41-73); Platelet Count 189 K/mm3 (150-400); RDW Coefficient Variation 14.2 % (11.7-14.2); RDW Standard Deviation 53.1 fL (35.1-46.3); Red Blood Cell Count 4.14 M/mm3 (3.80-5.20); White Blood Cell Count 7.62 K/mm3 (4.00-11.30)
[2024-04-12 11:08] LABS: Albumin, Blood 3.4 g/dL (3.4-5.0); Albumin/Globulin Ratio 0.9 (0.8-1.8); Alk Phos 120 U/L (50-136); Anion Gap 5 mmol/L (3-11); Aspartate Aminotrans (AST/SGOT 10 U/L (12-37); Bilirubin, Total 0.6 mg/dL (0.1-1.0); Blood Urea Nitrogen 12 mg/dL (8-24); Bun/Creatinine Ratio 15.3 (12.0-20.0); CO2, Blood 36 mmol/L (21-32); Calcium, Blood 8.7 mg/dL (8.5-10.1); Chloride, Blood 106 mmol/L (98-108); Creatinine, Blood 0.78 mg/dL (0.40-1.00); Globulin, Blood 3.8 g/dL (2.2-4.0); Glomerular Filtration Rate 79 (60-); Glucose, Blood 102 mg/dL (70-99); Potassium, Blood 4.1 mmol/L (3.5-5.5); Sodium, Blood 143 mmol/L (136-145); Total Protein, Blood 7.2 g/dL (6.4-8.2)
[2024-04-12 11:16] LABS: Alanine Aminotransfer (ALT/SGP <6 U/L (12-78)
== END 2024-04-12 11:42 | disposition home or self-care (01) ==
LOC: ER 08:38
PROVIDERS: Student in an Organized Health Care Education/Training Program
DX: S80.12XA Contusion of left lower leg, initial encounter (principal); I10 Essential (primary) hypertension; I48.91 Unspecified atrial fibrillation; F17.210 Nicotine dependence, cigarettes, uncomplicated; W19.XXXA Unspecified fall, initial encounter; Z86.73 Personal history of transient ischemic attack (TIA), and cerebral infarction without residual deficits; Z79.899 Other long term (current) drug therapy; Z88.5 Allergy status to narcotic agent
CPT/HCPCS: 73590; 80053; 85025

== ENCOUNTER 2024-04-29 13:47 | Emergency (ER) | payer OTHER ==
[~2024-04-29] VITALS: Ht 162.6 cm; Wt 86.2 kg
[2024-04-29 14:16] LABS: BASOPHILS ABSOLUTE AUTO 0.07 K/mm3 (0.00-0.23); BASOPHILS PERCENT AUTO 1 % (0-2); EOSINOPHILS ABSOLUTE AUTO 0.15 K/mm3 (0.00-0.68); EOSINOPHILS PERCENT AUTO 2 % (0-6); Hematocrit 48.1 % (33.0-51.0); Hemoglobin 14.6 g/dL (11.5-16.0); IMMATURE GRAN ABSOLUTE AUTO 0.02 K/mm3 (0.00-0.10); IMMATURE GRAN PERCENT AUTO 0 % (0-1); LYMPHOCYTES ABSOLUTE AUTO 0.85 K/mm3 (0.84-5.20); LYMPHOCYTES PERCENT AUTO 9 % (21-46); MONOCYTES ABSOLUTE AUTO 0.61 K/mm3 (0.16-1.47); MONOCYTES PERCENT AUTO 7 % (4-13); Mean Corpuscular HGB 30.4 pg (26.0-34.0); Mean Corpuscular HGB Conc 30.4 g/dL (31.5-36.5); Mean Corpuscular Volume 100 fL (80-100); Mean Platelet Volume 9.5 fL (9.1-12.4); NEUTROPHILS ABSOLUTE AUTO 7.48 K/mm3 (1.96-9.15); NEUTROPHILS PERCENT AUTO 82 % (41-73); Platelet Count 259 K/mm3 (150-400); RDW Coefficient Variation 13.9 % (11.7-14.2); RDW Standard Deviation 51.7 fL (35.1-46.3); White Blood Cell Count 9.18 K/mm3 (4.00-11.30)
[2024-04-29 14:44] LABS: Albumin, Blood 3.5 g/dL (3.4-5.0); Albumin/Globulin Ratio 0.8 (0.8-1.8); Bilirubin, Total 0.3 mg/dL (0.1-1.0); Bun/Creatinine Ratio 16.4 (12.0-20.0); Calcium, Blood 9.5 mg/dL (8.5-10.1); Creatinine, Blood 1.77 mg/dL (0.40-1.00); Globulin, Blood 4.4 g/dL (2.2-4.0); Potassium, Blood 5.1 mmol/L (3.5-5.5); Total Protein, Blood 7.9 g/dL (6.4-8.2)
[2024-04-29 17:30] VITALS: BP 124/81
== END 2024-04-29 17:45 | disposition home or self-care (01) ==
LOC: ER 13:47
PROVIDERS: Emergency Medicine
DX: I73.9 Peripheral vascular disease, unspecified (principal); I10 Essential (primary) hypertension; I48.91 Unspecified atrial fibrillation; G20.A1 Parkinson's disease without dyskinesia, without mention of fluctuations; F17.210 Nicotine dependence, cigarettes, uncomplicated; Z79.899 Other long term (current) drug therapy; Z88.5 Allergy status to narcotic agent; Z79.01 Long term (current) use of anticoagulants
CPT/HCPCS: 74177; 80053; 85025; 93926; Q9967

== ENCOUNTER 2024-06-01 10:16 | Inpatient (IN) | payer OTHER ==
[~2024-06-01] VITALS: Ht 167.6 cm; Wt 67.3 kg
[2024-06-01 10:29] LABS: Base Excess Venous -11.9 mmol/L; Bicarbonate Venous 16.4 mmol/L (24.0-30.0); PCO2 Venous 32.9 mmHg (38-42); pH Blood Venous 7.27 (7.34-7.37)
[2024-06-01 10:36] LABS: BASOPHILS ABSOLUTE AUTO 0.04 K/mm3 (0.00-0.23); BASOPHILS PERCENT AUTO 1 % (0-2); EOSINOPHILS ABSOLUTE AUTO 0.01 K/mm3 (0.00-0.68); EOSINOPHILS PERCENT AUTO 0 % (0-6); Hematocrit 53.9 % (33.0-51.0); Hemoglobin 17.1 g/dL (11.5-16.0); IMMATURE GRAN ABSOLUTE AUTO 0.06 K/mm3 (0.00-0.10); IMMATURE GRAN PERCENT AUTO 1 % (0-1); LYMPHOCYTES ABSOLUTE AUTO 1.33 K/mm3 (0.84-5.20); LYMPHOCYTES PERCENT AUTO 16 % (21-46); MONOCYTES ABSOLUTE AUTO 0.33 K/mm3 (0.16-1.47); MONOCYTES PERCENT AUTO 4 % (4-13); Mean Corpuscular HGB 30.5 pg (26.0-34.0); Mean Corpuscular HGB Conc 31.7 g/dL (31.5-36.5); Mean Corpuscular Volume 96 fL (80-100); Mean Platelet Volume 11.5 fL (9.1-12.4); NEUTROPHILS ABSOLUTE AUTO 6.36 K/mm3 (1.96-9.15); NEUTROPHILS PERCENT AUTO 78 % (41-73); Platelet Count 189 K/mm3 (150-400); RDW Coefficient Variation 14.1 % (11.7-14.2); RDW Standard Deviation 49.6 fL (35.1-46.3); Red Blood Cell Count 5.61 M/mm3 (3.80-5.20); White Blood Cell Count 8.13 K/mm3 (4.00-11.30)
[2024-06-01 10:44] LABS: Calcium, Ionized (POC) 1.11 mmol/L (1.10-1.46); Chloride (POC) 104 mmol/L (98-108); Creatinine (POC) 1.2 mg/dL (0.6-1.0); Glucose (ISTAT POC) 250 mg/dL (70-99); Sodium (POC) 143 mmol/L (135-148); Total CO2 (POC) 17 mmol/L (21-32)
[2024-06-01 10:56] LABS: Albumin, Blood 3.6 g/dL (3.4-5.0); Albumin/Globulin Ratio 0.8 (0.8-1.8); Bilirubin, Total 0.7 mg/dL (0.1-1.0); Bun/Creatinine Ratio 32.7 (12.0-20.0); Calcium, Blood 9.6 mg/dL (8.5-10.1); Creatinine, Blood 1.07 mg/dL (0.40-1.00); Globulin, Blood 4.3 g/dL (2.2-4.0); Total Protein, Blood 7.9 g/dL (6.4-8.2)
[2024-06-01 10:58] LABS: Source, Urine Foley catheter
[2024-06-01 11:02] LABS: Appearance, Urine Hazy (Clear); Bilirubin, Urine Neg (Neg); Blood, Urine 4+ (Neg); Color, Urine Yellow (P-Yellow); Glucose Qualitative, Urine Neg (Neg); Ketones, Urine 2+ (Neg); Leukocyte Esterase, Urine Neg (Neg); Nitrite, Urine Neg (Neg); Protein, Urine 2+ (Neg); Specific Gravity, Urine 1.025 (1.003-1.022); Urobilinogen, Urine NORM (Normal)
[2024-06-01] MEDS ORDERED: NS 1,000 ML IV SCH ×2 (11:15→13:10)
[2024-06-01] MEDS ORDERED: FentaNYL Citrate 50 MCG/ML 2 ML Injection IV ONE ×2 (11:40→23:05)
[2024-06-01] MEDS ORDERED: Ondansetron HCl 2 MG / ML 2ML Vial IV ONE (11:40)
[2024-06-01] MEDS ORDERED: Potassium Chloride 40 MEQ in NS 250 ML IV ONE (11:40)
[2024-06-01 11:53] LABS: Granular Casts 0-2 /lpf (0)
[2024-06-01 11:54] LABS: Squamous Epithelial Cells Few /hpf (Few); White Blood Cells, Urine 0-2 /hpf (0-5)
[2024-06-01 11:55] LABS: Amorphous Light (0-Heavy); Bacteria Few /hpf; Mucus Heavy (0-Heavy)
[2024-06-01] MEDS ORDERED: Diazepam 5 MG / ML 2ML SYR IV ONE (12:35)
[2024-06-01] MEDS ORDERED: D5W-1/2NS KCl 20mEq 1,000 ML IV SCH (15:00)
[2024-06-01] MEDS ORDERED: LORazepam 2 MG/ML 1ML Injection IV PRN ×3 (15:00)
[2024-06-01] MEDS ORDERED: HydrALAZINE HCl 20 MG / ML 1ML Vial IV PRN (15:00)
[2024-06-01] MEDS ORDERED: Acetaminophen 325 MG TABLET PO PRN (16:10)
[2024-06-01] MEDS ORDERED: Ondansetron HCl 2 MG / ML 2ML Vial IV PRN (16:15)
[2024-06-01] MEDS ORDERED: Ketorolac Tromethamine 30mg Vial IV ONE (17:00)
[2024-06-01] MEDS ORDERED: NS KCl 20mEq 1,000 ML IV SCH (17:00)
[2024-06-01] MEDS ORDERED: METF500 PO (17:55)
[2024-06-01] MEDS ORDERED: POTCHL20ER PO (17:56)
[2024-06-01] MEDS ORDERED: FURO20 PO (17:56)
[2024-06-01] MEDS ORDERED: DESV50 PO (17:57)
[2024-06-01] MEDS ORDERED: METO25ER PO (17:57)
--- NOTE | 2024-06-01 18:36 | NUR ---
1710 RECEIVED PT TO 347 VIA GURNEY FROM ER. SLIDE TX TO BED. PT TO ER D/T DEHYDRATION AND DECREASED LOC. PER REPORT, PT SOMEWHAT UNRESPONSIVE. PT MOANING D/T PAIN. FAMILY REPORTS 2 RODS TO BACK; ONE BROKEN CAUSING PAIN. TOBIAS PLACED IN ER DRAINING DARK YELLOW. IVF'S INFUSING TO ; BOLUS'S GIVEN IN ER, ADDITIONAL IVF'S STARTED PER EMAR. PT MEDICATED WITH TORADOL IN ER AND TYLENOL AFTER ADMISSION. FAMILY TO TO ASSIST WITH ADMISSION. PT WITH HX OF PARKINSONS DEMENTIA. LLE CELLULITIS; PICTURES TAKEN AND PLACED ON CHART. PT ON RA WITH BIOX AT 95-97%. FAMILY REPORTING PT USING FWW AT HOME, BUT ONLY ABLE TO GO A COUPLE OF STEPS BEFORE LEGS GIVE OUT. PT WITH FREQUENT FALLS AT HOME. PT ON BEDREST AT THIS TIME. BED ALARM ON FOR SAFETY. CALL LT IN REACH. PT'S DAUGHTER N LAW REMAINS AT BS WITH PT.
[2024-06-01 19:30] VITALS: BP 147/82
[2024-06-01] MEDS ORDERED: Gabapentin 300 MG Cap PO SCH (21:05)
[2024-06-01] MEDS ORDERED: Ketorolac Tromethamine 15mg Vial IV PRN (21:10)
[2024-06-01] MEDS ORDERED: Insulin Human Lispro 100 Units/ML 3ML Syringe SC SCH (23:00)
[2024-06-01] MEDS ORDERED: FentaNYL Citrate 50 MCG/ML 2 ML Injection IV PRN (23:05)
[2024-06-02 04:05] VITALS: BP 180/78
--- NOTE | 2024-06-02 04:54 | NUR ---
PER REPORT, PT's DAUGHTER HAS BEEN PROVIDING PT WITH MARIJUANA GUMMIES.
[2024-06-02 05:32] LABS: Albumin, Blood 2.9 g/dL (3.4-5.0); Anion Gap 12 mmol/L (3-11); Blood Urea Nitrogen 24 mg/dL (8-24); Bun/Creatinine Ratio 35.9 (12.0-20.0); CO2, Blood 22 mmol/L (21-32); Calcium, Blood 8.6 mg/dL (8.5-10.1); Chloride, Blood 117 mmol/L (98-108); Creatinine, Blood 0.67 mg/dL (0.40-1.00); Glomerular Filtration Rate 91 (60-); Glucose, Blood 90 mg/dL (70-99); Phosphorus, Blood 2.1 mg/dL (2.5-4.9); Potassium, Blood 3.7 mmol/L (3.5-5.5); Sodium, Blood 147 mmol/L (136-145)
--- NOTE | 2024-06-02 05:50 | NUR ---
SHIFT SUMMARY PT A&Ox2 HOWEVER, COGNITION WAS DIFFICULT TO ASSESS D/T SEVERE PAIN. FAMILY AT BEDSIDE AND ALSO VERBALIZED CONCERN ABOUT PT's LEVEL OF PAIN. TYLENOL WAS GIVEN PRIOR TO SHIFT CHANGE AND DID NOT PROVIDE ANY RELIEF. HEAT PAD AND REPOSITIONING PROVIDED. HOSPITALIST CALLED AND PAIN MEDICATION ORDERS GIVEN. PT STILL APPEARED TO BE IN SEVERE PAIN DESPITE ADDITIONAL PAIN MEDS ADMINISTERED. PT WAS CRYING OUT, ARCHING BACK, GRIMACING, AND ALMOST IN TEARS. FAMILY CONTINUED TO VERBALIZE CONCERN AND CALLED PT's SON WHO ALSO VERBALIZED FRUSTRATION THAT HIS MOM'S PAIN WAS NOT CONTROLLED. FAMILY REMINDED THAT GOAL WAS TO AVOID NARCOTICS TO ASSESS PT'S MENTAION FOR IMPROVMENT BUT FAMILY WAS MORE CONCERNED ABOUT CONTROLLING PT'S PAIN, WAS THIS NURSE. FAMILY ALSO STATED THEY WOULD NOT GO HOME UNTIL PT WAS RESTING COMFORTABLY. HOSPITALIST AGAIN CALLED AND NEW ORDERS GIVEN FOR FENTYNAL. PAIN WAS FINALLY CONTROLLED AND PT WAS ABLE TO SLEEP. PT PLACED ON 2L OF OXYGEN WHILE SLEEPING. PT's TROPONIN WAS ELEVATED AND HOSPITALIST NOTIFIED. ORDERS GIVEN. NO EVENTS ON TELE. NS KCL INFUSING PER EMAR. BED ALARM ON. BED IN LOWEST POSITON AND CALL LIGHT IN REACH.
[2024-06-02] MEDS ORDERED: D5W-1/2NS KCl 20mEq 1,000 ML IV SCH (06:30)
[2024-06-02] MEDS ORDERED: D5W-1/2NS KCl 20mEq 1,000 ML IV ONE (07:00)
[2024-06-02 07:35] VITALS: BP 170/75
[2024-06-02] MEDS ORDERED: Pramipexole DI-HCL 0.125 MG Tab PO SCH (09:00)
[2024-06-02] MEDS ORDERED: Amantadine HCl 100 MG Cap PO SCH (09:00)
[2024-06-02] MEDS ORDERED: Metoprolol Succinate 25 MG TABCR PO SCH (09:00)
[2024-06-02] MEDS ORDERED: Levodopa/Carbidopa 100 / 25 MG Tab PO SCH (09:00)
[2024-06-02] MEDS ORDERED: Venlafaxine HCl 75 MG CapCR PO SCH (09:00)
[2024-06-02] MEDS ORDERED: AmLODIPine Besylate 5 MG Tab PO SCH (09:00)
[2024-06-02] MEDS ORDERED: Potassium Chloride 20 MEQ TabCR PO SCH (09:00)
[2024-06-02] MEDS ORDERED: Enoxaparin 40 MG/0.4 ML SYR SC SCH (09:00)
[2024-06-02] MEDS ORDERED: Acetaminophen 500 MG Tab PO PRN (10:20)
[2024-06-02] MEDS ORDERED: Ketorolac Tromethamine 30mg Vial IV PRN (10:45)
[2024-06-02 16:33] VITALS: BP 142/64
--- NOTE | 2024-06-02 18:40 | NUR ---
SHIFT SUMMARY PT HAS DONE WELL T/O SHIFT. PT DID WORK WITH PT AND GOT TO SIDE OF BED. THIS AFTERNOON PT GOT UP TO CHAIR 2 MIN ASSIST AND STAYED UP FOR DINNER AND TO VISIT WITH FAMILY. PT IS HOPING TO GO HOME WITH FAMILY THEY LIVE WITH HER PLATE MAKER ZINC AND CAN PROVIDE TOTAL CARE NEEDED. PT IS A/O X'S 3, HAS DENIED PAIN T/O SHIFT. TOLERATING REGULAR DIET WITH NO N/V.
[2024-06-02 19:24] VITALS: BP 142/73
[2024-06-03 03:21] VITALS: BP 115/63
[2024-06-03 05:41] LABS: BASOPHILS ABSOLUTE AUTO 0.05 K/mm3 (0.00-0.23); BASOPHILS PERCENT AUTO 1 % (0-2); EOSINOPHILS ABSOLUTE AUTO 0.18 K/mm3 (0.00-0.68); EOSINOPHILS PERCENT AUTO 2 % (0-6); Hematocrit 41.4 % (33.0-51.0); Hemoglobin 12.5 g/dL (11.5-16.0); IMMATURE GRAN ABSOLUTE AUTO 0.03 K/mm3 (0.00-0.10); IMMATURE GRAN PERCENT AUTO 0 % (0-1); LYMPHOCYTES ABSOLUTE AUTO 1.25 K/mm3 (0.84-5.20); LYMPHOCYTES PERCENT AUTO 17 % (21-46); MONOCYTES PERCENT AUTO 9 % (4-13); Mean Corpuscular HGB 29.4 pg (26.0-34.0); Mean Corpuscular HGB Conc 30.2 g/dL (31.5-36.5); Mean Corpuscular Volume 97 fL (80-100); Mean Platelet Volume 11.7 fL (9.1-12.4); NEUTROPHILS ABSOLUTE AUTO 5.23 K/mm3 (1.96-9.15); NEUTROPHILS PERCENT AUTO 70 % (41-73); Platelet Count 129 K/mm3 (150-400); RDW Coefficient Variation 14.6 % (11.7-14.2); RDW Standard Deviation 52.4 fL (35.1-46.3); Red Blood Cell Count 4.25 M/mm3 (3.80-5.20); White Blood Cell Count 7.44 K/mm3 (4.00-11.30)
[2024-06-03 06:00] LABS: Albumin, Blood 2.7 g/dL (3.4-5.0); Anion Gap 9 mmol/L (3-11); Blood Urea Nitrogen 20 mg/dL (8-24); Bun/Creatinine Ratio 29.3 (12.0-20.0); CO2, Blood 25 mmol/L (21-32); Calcium, Blood 8.9 mg/dL (8.5-10.1); Chloride, Blood 114 mmol/L (98-108); Creatinine, Blood 0.68 mg/dL (0.40-1.00); Glomerular Filtration Rate 91 (60-); Glucose, Blood 114 mg/dL (70-99); Phosphorus, Blood 2.2 mg/dL (2.5-4.9); Potassium, Blood 3.8 mmol/L (3.5-5.5); Sodium, Blood 144 mmol/L (136-145)
--- NOTE | 2024-06-03 06:25 | NUR ---
SHIFT SUMMARY: PATIENT IS A&OX3, VSS. @6016 TELI TECH CALLS TO REPORT HR WENT UP TO 150'S FOR 3 SEC[address] PATIENT IS SLEEPING ST THIS TIME WITH NO S/S OF PAIN OR DISCOMFORT. MICHELINE IS PATENT FOR A CLOUDY RINA URINE. BED ALARM IS ON FOR SAFETY.
[2024-06-03 07:25] VITALS: BP 144/59
[2024-06-03 14:19] LABS: Source, Urine Foley catheter
[2024-06-03 14:27] LABS: Appearance, Urine Cloudy (Clear); Bilirubin, Urine Neg (Neg); Blood, Urine 4+ (Neg); Color, Urine Yellow (P-Yellow); Glucose Qualitative, Urine Neg (Neg); Ketones, Urine 1+ (Neg); Leukocyte Esterase, Urine 3+ (Neg); Nitrite, Urine Pos (Neg); Protein, Urine 2+ (Neg); Specific Gravity, Urine 1.025 (1.003-1.022); Urobilinogen, Urine NORM (Normal)
[2024-06-03 14:34] LABS: Bacteria Many /hpf; Red Blood Cells, Urine 25-50 /hpf (0-2); Renal Epithelial Rare /hpf (0-Rare); Squamous Epithelial Cells Few /hpf (Few); White Blood Cells, Urine 50-100 /hpf (0-5)
[2024-06-03 14:35] LABS: Calcium Oxalate Crystals Rare /hpf
--- NOTE | 2024-06-03 16:28 | NUR ---
SHIFT SUMMARY A&OX4, COOPERATIVE WITH CARE, PLEASANT. DENIES CP/PRESSURE, HEADACHE, DIZZINESS, OR SOB. CURRENTLY ON 2L O2. LSCTA. WORKED WITH PT AND OT TODAY. CAESAR MAYA, UA SENT TO LAB. REPORTED 5/10 CHRONIC BACK PAIN BUT DENIED NEED FOR MEDICATION. NO ACUTE CHANGES THIS SHIFT. PLAN FOR DISCHARGE TOMORROW. FAMILY IN ROOM T/O THE SHIFT. CURRENTLY READING A BOOK IN BED. BED IN THE LOWEST POSITION. CALL LIGHT WITHIN REACH.
[2024-06-03 16:47] VITALS: BP 144/67
[2024-06-03 16:49] VITALS: BP 134/73
[2024-06-03 16:50] VITALS: BP 125/79
[2024-06-03 19:47] VITALS: BP 134/66
[2024-06-04 03:31] VITALS: BP 121/66
--- NOTE | 2024-06-04 05:05 | NUR ---
SHIFT SUMMARY: PATIENT HAS BEEN VOIDING WITHOUT DIFFICULTY S/O TOBIAS REMOVAL YESTERDAY. REPORTED BACK PAIN, CHRONIC IN NATURE, 02/08. PRN TYLENOL WAS GIVEN WITH GOOD EFFECT. BLOOD GLUCOSE LEVELS ARE STABLE AND PATIENT HAS HER APPETITE BACK. ORDERS WERE OBTAINED FROM DR BECKWITH TO CHANGE MEDIUM SS TO AC/HS. VSS.
[2024-06-04 06:27] LABS: Albumin, Blood 2.6 g/dL (3.4-5.0); Anion Gap 10 mmol/L (3-11); Blood Urea Nitrogen 15 mg/dL (8-24); Bun/Creatinine Ratio 21.4 (12.0-20.0); CO2, Blood 24 mmol/L (21-32); Calcium, Blood 8.7 mg/dL (8.5-10.1); Chloride, Blood 111 mmol/L (98-108); Glomerular Filtration Rate 90 (60-); Glucose, Blood 141 mg/dL (70-99); Phosphorus, Blood 2.4 mg/dL (2.5-4.9); Potassium, Blood 3.9 mmol/L (3.5-5.5); Sodium, Blood 141 mmol/L (136-145)
[2024-06-04 07:17] VITALS: BP 142/68
[2024-06-04] MEDS ORDERED: Insulin Human Lispro 100 Units/ML 3ML Syringe SC SCH (07:30)
--- NOTE | 2024-06-04 12:08 | NUR ---
DISCHARGE NOTE PT DISCHARGED HOME WITH HOME-HEALTH. PICKED UP BY HER DAUGHTER. IV'S REMOVED. TELE RETURNED. MEDICATIONS FAXED TO THE PHARMACY OF HER CHOICE. DISCHARGE EDUCATION AND INFORMATION PROVIDED. PERSONAL BELONGINGS RETURNED.
[2024-06-05 14:50] LABS: MYOGLOBIN SERUM 1336 ng/mL (<=58)
== END 2024-06-04 12:00 | disposition home health service (06) | DRG 641 ==
LOC: ER 10:16 → MEDS 16:09 → ER 17:12 → MEDS 17:42 → ENPENDDIS 06-04 11:36 → MEDS 06-04 12:00
PROVIDERS: Emergency Medicine; ADMIT Internal Medicine Endocrinology, Diabetes & Metabolism
DX: E86.0 Dehydration (principal); L03.116 Cellulitis of left lower limb; T73.0XXA Starvation, initial encounter; E87.29 Other acidosis; Z88.5 Allergy status to narcotic agent; E87.6 Hypokalemia; I35.0 Nonrheumatic aortic (valve) stenosis; G89.29 Other chronic pain; J44.9 Chronic obstructive pulmonary disease, unspecified; E11.9 Type 2 diabetes mellitus without complications; R31.9 Hematuria, unspecified; G47.33 Obstructive sleep apnea (adult) (pediatric); G20.A1 Parkinson's disease without dyskinesia, without mention of fluctuations; I48.0 Paroxysmal atrial fibrillation; M54.9 Dorsalgia, unspecified; G31.84 Mild cognitive impairment of uncertain or unknown etiology; F32.A Depression, unspecified; E66.3 Overweight; R79.89 Other specified abnormal findings of blood chemistry; Z90.710 Acquired absence of both cervix and uterus; Z90.49 Acquired absence of other specified parts of digestive tract; Z98.890 Other specified postprocedural states; Z90.89 Acquired absence of other organs; Z87.891 Personal history of nicotine dependence; Z79.899 Other long term (current) drug therapy; Z79.811 Long term (current) use of aromatase inhibitors; Z87.442 Personal history of urinary calculi; Z68.29 Body mass index [BMI] 29.0-29.9, adult
CPT/HCPCS: 36415; 51702; 70450; 70496; 70498; 71045; 80047; 80053; 80069; 81001; 82550; 82803; 82947; 83690; 83874; 84484; 85014; 85025; 93005; 93010; 94760; 94762; 96361; 96365; 96366; 96375; 97110; 97162; 97165; 97530; 97535; 99285-25; A9270; J1650; J1885; J2405; J3010; J3360; J3480; J7030; J7050; Q9967

== ENCOUNTER 2024-06-12 09:53 | Observation (INO) | payer OTHER ==
[~2024-06-12] VITALS: Ht 157.5 cm; Wt 59.5 kg
[~2024-06-12 09:53] MED LIST changes: +DESV50 PO; +METF500 PO; +METO25ER PO; +POTCHL20ER PO
[2024-06-12 10:23] LABS: BASOPHILS ABSOLUTE AUTO 0.03 K/mm3 (0.00-0.23); BASOPHILS PERCENT AUTO 0 % (0-2); EOSINOPHILS ABSOLUTE AUTO 0.03 K/mm3 (0.00-0.68); EOSINOPHILS PERCENT AUTO 0 % (0-6); Hematocrit 43.8 % (33.0-51.0); Hemoglobin 13.7 g/dL (11.5-16.0); IMMATURE GRAN ABSOLUTE AUTO 0.06 K/mm3 (0.00-0.10); IMMATURE GRAN PERCENT AUTO 1 % (0-1); LYMPHOCYTES ABSOLUTE AUTO 0.96 K/mm3 (0.84-5.20); LYMPHOCYTES PERCENT AUTO 8 % (21-46); MONOCYTES PERCENT AUTO 6 % (4-13); Mean Corpuscular HGB 29.5 pg (26.0-34.0); Mean Corpuscular HGB Conc 31.3 g/dL (31.5-36.5); Mean Corpuscular Volume 94 fL (80-100); Mean Platelet Volume 9.7 fL (9.1-12.4); NEUTROPHILS ABSOLUTE AUTO 10.67 K/mm3 (1.96-9.15); NEUTROPHILS PERCENT AUTO 85 % (41-73); Platelet Count 233 K/mm3 (150-400); RDW Coefficient Variation 15.2 % (11.7-14.2); RDW Standard Deviation 52.7 fL (35.1-46.3); Red Blood Cell Count 4.65 M/mm3 (3.80-5.20); White Blood Cell Count 12.55 K/mm3 (4.00-11.30)
[2024-06-12 10:43] LABS: Magnesium, Blood 2.3 mg/dL (1.6-2.4)
[2024-06-12 11:12] LABS: Alanine Aminotransfer (ALT/SGP <6 U/L (12-78); Albumin, Blood 2.7 g/dL (3.4-5.0); Albumin/Globulin Ratio 0.6 (0.8-1.8); Alk Phos 135 U/L (50-136); Anion Gap 12 mmol/L (3-11); Aspartate Aminotrans (AST/SGOT 17 U/L (12-37); Bilirubin, Total 0.5 mg/dL (0.1-1.0); Blood Urea Nitrogen 15 mg/dL (8-24); Bun/Creatinine Ratio 21.5 (12.0-20.0); CO2, Blood 23 mmol/L (21-32); Calcium, Blood 9.4 mg/dL (8.5-10.1); Chloride, Blood 108 mmol/L (98-108); Globulin, Blood 4.2 g/dL (2.2-4.0); Glomerular Filtration Rate 90 (60-); Glucose, Blood 152 mg/dL (70-99); Phosphorus, Blood 2.4 mg/dL (2.5-4.9); Sodium, Blood 139 mmol/L (136-145); Total Protein, Blood 6.9 g/dL (6.4-8.2)
[2024-06-12] MEDS ORDERED: NS 1,000 ML IV SCH (12:30)
[2024-06-12] MEDS ORDERED: Piperacillin/Tazobactam Sod 3.375 GM in NS 100 ML IV ONE (12:30)
[2024-06-12] MEDS ORDERED: Ibuprofen 600 MG Tab PO ONE (13:55)
--- NOTE | 2024-06-12 16:35 | NUR ---
RECEIVED REPORT FROM RANJIT ARREDONDO RN.
[2024-06-12 17:10] VITALS: BP 143/68
[2024-06-12] MEDS ORDERED: Albuterol 2.5 MG/3 ML VIAL INH PRN (17:20)
[2024-06-12] MEDS ORDERED: Tiotropium Bromide 2.5 MCG/ACT MIST INHAL (10 ACT/4 GM) INH SCH (17:25)
[2024-06-12] MEDS ORDERED: Piperacillin/Tazobactam Sod 4.5 GM in NS 100 ML IV SCH (18:00)
[2024-06-12] MEDS ORDERED: NS 250 ML IV SCH (18:35)
--- NOTE | 2024-06-12 20:02 | NUR ---
END OF SHIFT SUMMARY: A&Ox4. PLEASANT AND COOPERATIVE WITH CARE. CALLS APPROPRIATELY AND IS ABLE TO ADVOCATE NEEDS EFFECTIVELY. AMBULATES 1PA c FWW TO BATHROOM. WC FOR LONG DISTANCES. CONTINENT WITH SOME URINARY URGENCY/OVERFLOW INCONTINENCE. LBM TODAY. TELE SINUS @ 80. MEDS WHOLE WITH FLUIDS. NO C/O PAIN OR DISCOMFORT. LUNG SOUNDS COARSE CRACKLES BIBASILARY. BED IN LOWEST POSITION. CALL LIGHT WITHIN REACH. ALL NEEDS MET. REPORT TO ONCOMING RN.
[2024-06-12] MEDS ORDERED: Gabapentin 300 MG Cap PO SCH (21:00)
[2024-06-12] MEDS ORDERED: Pramipexole DI-HCL 0.25 MG Tab PO SCH (21:00)
[2024-06-12] MEDS ORDERED: Amantadine HCl 100 MG Cap PO SCH (21:00)
[2024-06-12] MEDS ORDERED: Levodopa/Carbidopa 100 / 25 MG Tab PO SCH (21:00)
[2024-06-12 21:07] VITALS: BP 121/50
[2024-06-13 05:12] VITALS: BP 144/76
[2024-06-13 05:29] LABS: BASOPHILS ABSOLUTE AUTO 0.02 K/mm3 (0.00-0.23); BASOPHILS PERCENT AUTO 0 % (0-2); EOSINOPHILS ABSOLUTE AUTO 0.09 K/mm3 (0.00-0.68); EOSINOPHILS PERCENT AUTO 1 % (0-6); Hematocrit 40.5 % (33.0-51.0); Hemoglobin 12.7 g/dL (11.5-16.0); IMMATURE GRAN ABSOLUTE AUTO 0.05 K/mm3 (0.00-0.10); IMMATURE GRAN PERCENT AUTO 1 % (0-1); LYMPHOCYTES ABSOLUTE AUTO 0.95 K/mm3 (0.84-5.20); LYMPHOCYTES PERCENT AUTO 10 % (21-46); MONOCYTES ABSOLUTE AUTO 0.84 K/mm3 (0.16-1.47); MONOCYTES PERCENT AUTO 9 % (4-13); Mean Corpuscular HGB 29.5 pg (26.0-34.0); Mean Corpuscular HGB Conc 31.4 g/dL (31.5-36.5); Mean Corpuscular Volume 94 fL (80-100); Mean Platelet Volume 9.7 fL (9.1-12.4); NEUTROPHILS ABSOLUTE AUTO 7.87 K/mm3 (1.96-9.15); NEUTROPHILS PERCENT AUTO 80 % (41-73); Platelet Count 219 K/mm3 (150-400); RDW Coefficient Variation 15.4 % (11.7-14.2); RDW Standard Deviation 53.3 fL (35.1-46.3); White Blood Cell Count 9.82 K/mm3 (4.00-11.30)
--- NOTE | 2024-06-13 05:57 | NUR ---
SHIFT SUMMARY 73 YR F ADMITTED ON 06/12/24. DNR. NO ACUTE CHANGES THIS SHIFT. PT CALLS APPROPRIATELY FOR ASSISTANCE AND HAS BEEN USING THE BEDSIDE COMMODE. SHE STATES THAT AMBULATING IS DIFFICULT DUE TO PAIN FROM THWE WOUNDS ON HER LLE. SHE IS PLEASANT AND COOPERATIVE WITH CARE. PT HAS NOT USED O2 THIS SHIFT AND SATS ARE REMAINING WNL. BED IN LOW POSITION AND CALL LIGHT IN REACH. WILL CONTINUE TO MONITOR.
[2024-06-13] MEDS ORDERED: Omeprazole 20 MG CapCR PO SCH (06:00)
[2024-06-13 06:22] LABS: Alanine Aminotransfer (ALT/SGP <6 U/L (12-78); Albumin, Blood 2.5 g/dL (3.4-5.0); Albumin/Globulin Ratio 0.6 (0.8-1.8); Alk Phos 117 U/L (50-136); Anion Gap 12 mmol/L (3-11); Aspartate Aminotrans (AST/SGOT 11 U/L (12-37); Bilirubin, Total 0.4 mg/dL (0.1-1.0); Blood Urea Nitrogen 14 mg/dL (8-24); Bun/Creatinine Ratio 17.9 (12.0-20.0); CO2, Blood 27 mmol/L (21-32); Calcium, Blood 9.2 mg/dL (8.5-10.1); Chloride, Blood 108 mmol/L (98-108); Creatinine, Blood 0.78 mg/dL (0.40-1.00); Globulin, Blood 4.2 g/dL (2.2-4.0); Glomerular Filtration Rate 79 (60-); Glucose, Blood 103 mg/dL (70-99); Potassium, Blood 3.8 mmol/L (3.5-5.5); Sodium, Blood 143 mmol/L (136-145); Total Protein, Blood 6.7 g/dL (6.4-8.2)
[2024-06-13 07:24] VITALS: BP 133/64
[2024-06-13] MEDS ORDERED: Atorvastatin 10 MG Tab PO SCH (09:00)
[2024-06-13] MEDS ORDERED: Metoprolol Succinate 25 MG TABCR PO SCH (09:00)
[2024-06-13] MEDS ORDERED: Sertraline HCl 100 MG Tab PO SCH (09:00)
[2024-06-13] MEDS ORDERED: Lisinopril 20 MG Tab PO SCH (09:00)
[2024-06-13] MEDS ORDERED: Enoxaparin 40 MG/0.4 ML SYR SC SCH (09:00)
[2024-06-13] MEDS ORDERED: Venlafaxine HCl 75 MG CapCR PO SCH (09:00)
[2024-06-13] MEDS ORDERED: Azithromycin 250 MG Tab PO ONE (14:00)
[2024-06-13] MEDS ORDERED: AMOCLA875 PO (14:05)
[2024-06-13] MEDS ORDERED: AZIT250 PO (14:06)
--- NOTE | 2024-06-13 14:22 | NUR ---
DISCHARGE SUMMARY: PATIENT DISCHARGED AT 1419. PATIENT WHEELED DOWN VIA WC TO RIDE, PATIENT FAMILY TO DRIVE HOME. FAXED MEDICATIONS TO [facility]. NOTIFIED PATIENT OF SCHEDULED FOLLOW UP APPOINTMENT WITH PCP. PATIENT LEFT WITH ALL BELONGINGS AND DISCHARGE PACKET.
== END 2024-06-13 14:29 | disposition home health service (06) ==
LOC: ER 09:53 → ERHOLD 09:54 → MEDS 17:06
PROVIDERS: Physician Assistant; ADMIT Internal Medicine
DX: A41.9 Sepsis, unspecified organism (principal); J18.9 Pneumonia, unspecified organism; L03.116 Cellulitis of left lower limb; G89.29 Other chronic pain; G20.C Parkinsonism, unspecified; I10 Essential (primary) hypertension; E11.40 Type 2 diabetes mellitus with diabetic neuropathy, unspecified; J44.9 Chronic obstructive pulmonary disease, unspecified; I48.0 Paroxysmal atrial fibrillation; I35.0 Nonrheumatic aortic (valve) stenosis; G47.33 Obstructive sleep apnea (adult) (pediatric); Z87.891 Personal history of nicotine dependence; Z88.5 Allergy status to narcotic agent; Z79.899 Other long term (current) drug therapy
CPT/HCPCS: 36415; 71046; 80053; 83605; 83735; 84100; 84145; 84484; 85025; 93005; 93010; 94640; 94664; 94760; 96365; 96367; 96372; 97116; 97162; 99285-25; A9270; G0378; J1650; J2543; J7050; P9612

== ENCOUNTER 2024-09-18 08:51 | Inpatient (IN) | payer OTHER ==
[~2024-09-18] VITALS: Ht 162.6 cm; Wt 77.1 kg
[~2024-09-18 08:51] MED LIST changes: +AMOCLA875 PO; +AZIT250 PO; -Lovastatin20 MG PO
[2024-09-18] MEDS ORDERED: Ipratropium Bromide INH 0.02% 0.5 mg/2.5ML Vial INH SCH (09:10)
[2024-09-18] MEDS ORDERED: Albuterol 2.5 MG/3 ML VIAL INH ONE (09:10)
[2024-09-18 09:16] LABS: BASOPHILS ABSOLUTE AUTO 0.02 K/mm3 (0.00-0.23); BASOPHILS PERCENT AUTO 0 % (0-2); EOSINOPHILS ABSOLUTE AUTO 0.02 K/mm3 (0.00-0.68); EOSINOPHILS PERCENT AUTO 0 % (0-6); Hematocrit 44.6 % (33.0-51.0); Hemoglobin 13.5 g/dL (11.5-16.0); IMMATURE GRAN ABSOLUTE AUTO 0.06 K/mm3 (0.00-0.10); IMMATURE GRAN PERCENT AUTO 1 % (0-1); LYMPHOCYTES ABSOLUTE AUTO 0.78 K/mm3 (0.84-5.20); LYMPHOCYTES PERCENT AUTO 9 % (21-46); MONOCYTES ABSOLUTE AUTO 0.62 K/mm3 (0.16-1.47); MONOCYTES PERCENT AUTO 7 % (4-13); Mean Corpuscular HGB 31.5 pg (26.0-34.0); Mean Corpuscular HGB Conc 30.3 g/dL (31.5-36.5); Mean Corpuscular Volume 104 fL (80-100); Mean Platelet Volume 9.8 fL (9.1-12.4); NEUTROPHILS ABSOLUTE AUTO 7.44 K/mm3 (1.96-9.15); NEUTROPHILS PERCENT AUTO 83 % (41-73); Platelet Count 209 K/mm3 (150-400); RDW Standard Deviation 60.8 fL (35.1-46.3); Red Blood Cell Count 4.29 M/mm3 (3.80-5.20); White Blood Cell Count 8.94 K/mm3 (4.00-11.30)
[2024-09-18 09:39] LABS: Albumin, Blood 3.4 g/dL (3.4-5.0); Albumin/Globulin Ratio 0.8 (0.8-1.8); Bilirubin, Total 0.7 mg/dL (0.1-1.0); Bun/Creatinine Ratio 32.1 (12.0-20.0); Calcium, Blood 9.6 mg/dL (8.5-10.1); Creatinine, Blood 0.53 mg/dL (0.40-1.00); Globulin, Blood 4.2 g/dL (2.2-4.0); Potassium, Blood 3.9 mmol/L (3.5-5.5); Total Protein, Blood 7.6 g/dL (6.4-8.2)
[2024-09-18] MEDS ORDERED: MethylPREDNISolone Sod Succ 125 MG Vial IV ONE (10:10)
[2024-09-18 10:47] LABS: Base Excess Venous 11.5 mmol/L; Bicarbonate Venous 32.4 mmol/L (24.0-30.0); PCO2 Venous 71.9 mmHg (38-42); pH Blood Venous 7.33 (7.34-7.37)
[2024-09-18 11:06] LABS: Adenovirus Not Detected (NOT DETECT); Bordetella pertussis Not Detected (NOT DETECT); Chlamydophila pneumoniae Not Detected (NOT DETECT); Coronavirus 229E Not Detected (NOT DETECT); Coronavirus HKU1 Not Detected (NOT DETECT); Coronavirus NL63 Not Detected (NOT DETECT); Coronavirus OC43 Not Detected (NOT DETECT); Human Metapneumovirus Not Detected (NOT DETECT); Human Rhinovirus/Enterovirus Not Detected (NOT DETECT); Influenza A/2009-H1 Not Detected (NOT DETECT); Influenza A/H1 Not Detected (NOT DETECT); Influenza A/H3 Not Detected (NOT DETECT); Influenza B Not Detected (NOT DETECT); Mycoplasma pneumoniae Not Detected (NOT DETECT); Parainfluenza Virus 1 Not Detected (NOT DETECT); Parainfluenza Virus 2 Not Detected (NOT DETECT); Parainfluenza Virus 3 Not Detected (NOT DETECT); Parainfluenza Virus 4 Not Detected (NOT DETECT); Respiratory Syncytial Virus Not Detected (NOT DETECT); SARS-Cov-2 (COVID-19), BioFire Not Detected (NOT DETECT)
[2024-09-18] MEDS ORDERED: Pramipexole DI-HCL 0.125 MG Tab PO ONE (13:50)
[2024-09-18] MEDS ORDERED: Gabapentin 300 MG Cap PO ONE (13:50)
[2024-09-18] MEDS ORDERED: Doxycycline Hyclate 100 MG TAB PO SCH (14:00)
[2024-09-18] MEDS ORDERED: FLU VACC TS2024-25(6MOS UP)/PF 45 MCG/0.5 ML SYRINGE IM ONE (15:00)
[2024-09-18] MEDS ORDERED: ALBU90OI INH (15:13)
[2024-09-18] MEDS ORDERED: Robaxin750 MG PO (15:42)
[2024-09-18] MEDS ORDERED: OXYC5 PO (15:43)
[2024-09-18] MEDS ORDERED: Ipratropium/Albuterol SulF 2.5-0.5MG/3 ML Amp INH SCH ×2 (15:45→20:05)
[2024-09-18] MEDS ORDERED: Albuterol 2.5 MG/3 ML VIAL INH PRN (15:45)
[2024-09-18] MEDS ORDERED: AmLODIPine Besylate 5 MG Tab PO SCH (16:00)
[2024-09-18] MEDS ORDERED: Metoprolol Succinate 25 MG TABCR PO SCH (16:00)
[2024-09-18] MEDS ORDERED: Lisinopril 10 MG Tab PO SCH (16:00)
[2024-09-18 17:26] VITALS: BP 163/77
--- NOTE | 2024-09-18 18:08 | NUR ---
PHONE CALL TO DAUGHTER IN LAW JACOBY REQUESTING MEDICATION RECONCILLIATION ASSISTANCE. PATIENT STATES SHE IS THE ONE WHO MANAGES. WAITING FOR CALL BACK.
[2024-09-18 18:32] VITALS: BP 161/82
[2024-09-18] MEDS ORDERED: MELA3 PO (19:04)
[2024-09-18] MEDS ORDERED: DESVENLAFAXINE100 MG PO (19:04)
[2024-09-18] MEDS ORDERED: ACET500 PO (19:05)
[2024-09-18] MEDS ORDERED: Ventolin5 MG/1 ML INH (19:21)
[2024-09-18] MEDS ORDERED: [UNRECOGNIZED DRUG - OTHER] NEB (19:21)
[2024-09-18 19:32] VITALS: BP 162/73
--- NOTE | 2024-09-18 19:40 | NUR ---
SHIFT SUMMARY- PT ADMITTED THROUGH THE ED, SHE HAS A LARGE WOUND ON HER LEFT MCKENNA, THE SKIN AROUND IT APPEARS TO BE RED AND HOT. REMOVED THE DRESSINGS AND REPLACED AFTER PHOTOGRAPHING AT THE TIME OF THE 2 RN SKIN CHECK. DRESSNING REPLACED AT THE TIME OF BEDSIDE REPORT. PT IN BED CALL LIGHT IN REACH, GROGGY BUT OTHERWISE APPEARS TO BE DOING OK. HOWEVER THE NIGHT RN TOOK A FORM IN FOR A SGNATURE FOR PHOTOGRAPHS AND WAS UNABLE TO ARROUSE THE PT. STERNAL RUB GAINS A GRUNT AND A SLIGHT TOSS OF THE HEAD. PT EXTREMELY LETHARGIC. NIGHT RN AWARE.
[2024-09-18 19:49] VITALS: BP 164/91
--- NOTE | 2024-09-18 20:03 | NUR ---
CALLED [facility]- PT NOT RESPONDING WHEN THE STAFF ATTEMPTED TO ROUSE, NOT TO VOICE OR TOUCH, STAFF ATTEMPTED TO ROLL AND THE PT UNCONCIOUSLY STRETCHED PUSHING AGAINST STAFF UNABLE TO ROUSE WITH STERNAL RUB. STAT VBG ORDERED, CONT BIOX AND BIPAP. CALLED ANA IN RT AND REQUESTED HER ASSISTANCE. SHE WENT TO GET THE MACHINE. LAB IS CURRENTLY DRAWING THE STAT VBG. PT STILL NOT RESPONDING, DR LYN CAME TO SEE THE PT AND WILL PLACE ORDERS.
[2024-09-18 20:22] LABS: Bicarbonate Venous 34.5 mmol/L (24.0-30.0); PCO2 Venous 56.6 mmHg (38-42); pH Blood Venous 7.43 (7.34-7.37)
[2024-09-18] MEDS ORDERED: Insulin Human Lispro 100 Units/ML 3ML Syringe SC SCH (21:00)
[2024-09-18] MEDS ORDERED: Levodopa/Carbidopa 100 / 25 MG Tab PO SCH (21:00)
[2024-09-18] MEDS ORDERED: Pramipexole DI-HCL 0.25 MG Tab PO SCH (21:00)
[2024-09-18] MEDS ORDERED: Gabapentin 300 MG Cap PO SCH (21:00)
--- NOTE | 2024-09-18 21:24 | NUR ---
ASSUMED CARE AT SHIFT CHANGE. SAMMIE MALDONADO RECIEVED NEW ORDERS (SEE PREVIOUS NOTE). PT IS NON AROUSABLE AT THIS TIME, BIPAP V60 APPLIED PER RT; SETTINGS @18/8, 40%,TIDALVOLUME 400. CONTINOUS PULSE OX 92% AT THIS TIME. DEMETRIS SCALE SCORE 9 PER ERICA COCHRAN. LUNGS ARE DIMINISHED AT BASES, FINE CRACKLES AT UPPER LOBES PER AUSCULTATION. NEW ORDERS FOR AC/HS B. ENGINE WATCHMAN NURSES NOTIFIED.
--- NOTE | 2024-09-18 23:20 | NUR ---
CARE MANAGMENT CONSULTATION REQUESTED AND ENTERED TO [facility] BY THIS RESIN MAKER. THIS RESIN MAKER RECEIVED A PHONE CALL FROM CORIE, WHO IS PT'S DAUGHTER. PER CORIE; - PT LIVES WITH HER SON AND [id number] - PT LIVES IN A HOUSE THAT IS FROM THE 1950'S AND THE HEATER IS BROKE. THEREFORE THERE IS NOT ANY HEATING SOURCE, (PT HAS A SMALL SPACE JANESSA IN THE CORNER OF THE AREA WHERE SHE STAYS, THAT PT DOES NOT KNOW HOW TO USE). CORIE IS CONCERNED AND REQUESTING ASSISTANCE FOR THE PT, SHE MENTIONED FINANCIAL ASSISTANCE TO FIX THE HEATER IN THE HOUSE. CORIE WAS ALSO THINKING ABOUT CONTACTING THE [facility] D/T THIS ISSUE. THIS RESIN MAKER MENTIONED RADIATOR HEATERS, AND COMMUNITY RESOURCE FROM [employer] 3D BILL ASSISTANCE. USED ACTIVE LISTENING AND EMPHATY AND ASSURED CORIE THAT CONSULT FOR CARE MANAGMENT IS ENTERED IN.
--- NOTE | 2024-09-19 02:07 | NUR ---
THIS SECTION WEAVER SPOKE WITH CORIE, THE PT'S DAUGHTER AT BEDSIDE, AND LATER THIS EVENING RECEIVED A CALL FROM HER ASKING FOR AN UPDATE OF THE PT'S CONDITION. CORIE PROVIDED HEALTH HX AND INFORMATION ABOUT THE PT'S LIVING SITUATION TO THIS SECTION WEAVER. PER CORIE/PT'S DAUGHTER: PT LIVES WITH HER SON AND [id number] (SEE PREVIOUS NOTE R/T CARE CONSULT REQUESTED) IN AN OLDER HOUSE. THE HEATER IS BROKE/NON-WORKING AND THERE ISN'T AN ALTERNATIVE HEAT SOURCE AT THE HOME. PT HAS A SMALL SPACE HEATER BUT UNSURE HOW TO USE IT. CORIE REQUESTING SOCIAL SERVICE ASSISTANCE TO GET THE HEATER FIXED/ANY HELP. CORIE THINKING TO CALL THE SENIOR SERVICES. CORIE WANTED TO PROVIDE ADDITIONAL HEALTH HX: PT HAD A RECENT HOSPITALIZATION AT [facility] ON 07/25. DX WAS POOR PO INTAKE, LOW K+, AND LEFT LE ULCER/ INFECTION. PT HAS A HX OF: SCOLIOSIS AND BACK SURGERIES. ONE OF THEM WAS UNSUCCESSFUL SURGERY, A BROKEN ROGELIO ON HER BACK. THEREFORE HER INTERNAL ORGANS AROUND ABDOMEN ARE SHIFTED 45 DEGREES. PT ALSO HAS A-FIB, PARKINSON'S, AND A BRAIN STIMULATOR THAT IS TURNED OFF>5 YEARS AGO.
[2024-09-19 03:08] VITALS: BP 155/65
--- NOTE | 2024-09-19 04:03 | NUR ---
SHIFT SUMMARY PT WAS ADMITTED DURING SHIFT CHANGE. PT WAS AWAKE, AND RESPONSIVE AT THAT TIME. PT'S DAUGHTER CORIE BY THE BEDSIDE PROVIDING HEALTH HX. PT BECAME UNRESPONSIVE AFTER THE DAUGHTER LEFT. DAY SHIFT RN STILL IN THE UNIT. NEW ORDERS FOR PULSE OX, BIPAP, AND STAT VBG LABS. @2030 VBG RESULTS BACK. RT BY THE BEDSIDE. RESIDENT BY THE BEDSIDE. AFTER V60 BIPAP STARTED @ 18/8, 40%, TIDAL VOL.400, PT'S O2 SAT'S HAVE BEEN 90-92%, REMAINS UNRESPONSIVE, EVEN WITH STERNAL RUB. RR'S 14/MIN. BED AT THE LOWEST POSITION. PICTURES IN THE CHART OF LLE. UPDATED PT'S CONDITION TO CORIE OVER THE PHONE. SENIOR ANIMATOR NOTIFIED AND AWARE OF THE PT'S SITUATION. WILL KEEP UPDATING TUBE OPERATOR.
[2024-09-19] MEDS ORDERED: Omeprazole 20 MG CapCR PO SCH (06:00)
[2024-09-19] MEDS ORDERED: Ampicillin Sod/Sulbactam Sod 3 GM in NS 100 ML IV SCH (07:30)
[2024-09-19 07:35] VITALS: BP 150/71
[2024-09-19 08:38] LABS: BASOPHILS ABSOLUTE AUTO 0.02 K/mm3 (0.00-0.23); BASOPHILS PERCENT AUTO 0 % (0-2); EOSINOPHILS ABSOLUTE AUTO 0.03 K/mm3 (0.00-0.68); EOSINOPHILS PERCENT AUTO 0 % (0-6); Hematocrit 44.3 % (33.0-51.0); Hemoglobin 13.1 g/dL (11.5-16.0); IMMATURE GRAN ABSOLUTE AUTO 0.04 K/mm3 (0.00-0.10); IMMATURE GRAN PERCENT AUTO 1 % (0-1); LYMPHOCYTES ABSOLUTE AUTO 0.61 K/mm3 (0.84-5.20); LYMPHOCYTES PERCENT AUTO 8 % (21-46); MONOCYTES ABSOLUTE AUTO 0.81 K/mm3 (0.16-1.47); MONOCYTES PERCENT AUTO 10 % (4-13); Mean Corpuscular HGB 31.5 pg (26.0-34.0); Mean Corpuscular HGB Conc 29.6 g/dL (31.5-36.5); Mean Corpuscular Volume 107 fL (80-100); Mean Platelet Volume 9.7 fL (9.1-12.4); NEUTROPHILS ABSOLUTE AUTO 6.62 K/mm3 (1.96-9.15); NEUTROPHILS PERCENT AUTO 81 % (41-73); NRBC ABSOLUTE 0.02 K/mm3 (0.00-0.02); NRBC Auto 0.2 /100 WBC (0.0-0.2); Platelet Count 188 K/mm3 (150-400); RDW Standard Deviation 62.4 fL (35.1-46.3); Red Blood Cell Count 4.16 M/mm3 (3.80-5.20); White Blood Cell Count 8.13 K/mm3 (4.00-11.30)
[2024-09-19 09:00] LABS: Albumin, Blood 3.2 g/dL (3.4-5.0); Albumin/Globulin Ratio 0.8 (0.8-1.8); Bilirubin, Total 0.4 mg/dL (0.1-1.0); Bun/Creatinine Ratio 31.6 (12.0-20.0); Calcium, Blood 9.5 mg/dL (8.5-10.1); Creatinine, Blood 0.7 mg/dL (0.40-1.00); Globulin, Blood 3.9 g/dL (2.2-4.0); Potassium, Blood 4.2 mmol/L (3.5-5.5); Total Protein, Blood 7.1 g/dL (6.4-8.2)
[2024-09-19] MEDS ORDERED: Arginine/Glutamine/Calcium Hmb 1 Packet PO SCH (09:00)
[2024-09-19] MEDS ORDERED: Sertraline HCl 100 MG Tab PO SCH (09:00)
[2024-09-19] MEDS ORDERED: Vancomycin HCL 1,750 MG in NS 500 ML IV SCH (09:00)
[2024-09-19] MEDS ORDERED: Enoxaparin 40 MG/0.4 ML SYR SC SCH (09:00)
[2024-09-19] MEDS ORDERED: MethylPREDNISolone Sod Succ 125 MG Vial IV SCH (09:00)
[2024-09-19] MEDS ORDERED: Atorvastatin 40 MG Tab PO SCH (09:00)
[2024-09-19 11:26] VITALS: BP 136/67
[2024-09-19] MEDS ORDERED: NS 250 ML IV PRN (11:45)
[2024-09-19 12:41] LABS: Base Excess Venous 15.7 mmol/L; PCO2 Venous 77.9 mmHg (38-42); pH Blood Venous 7.34 (7.34-7.37)
[2024-09-19] MEDS ORDERED: Lovastatin10 MG PO (13:14)
[2024-09-19] MEDS ORDERED: INCRUSE ELLIPTA 62.5 INH (13:23)
[2024-09-19 15:15] VITALS: BP 127/60
[2024-09-19 21:23] VITALS: BP 138/63
[2024-09-20 02:10] VITALS: BP 148/69
[2024-09-20 05:55] LABS: BASOPHILS ABSOLUTE AUTO 0.01 K/mm3 (0.00-0.23); BASOPHILS PERCENT AUTO 0 % (0-2); EOSINOPHILS ABSOLUTE AUTO 0.01 K/mm3 (0.00-0.68); EOSINOPHILS PERCENT AUTO 0 % (0-6); Hematocrit 40.6 % (33.0-51.0); Hemoglobin 11.8 g/dL (11.5-16.0); IMMATURE GRAN ABSOLUTE AUTO 0.04 K/mm3 (0.00-0.10); IMMATURE GRAN PERCENT AUTO 0 % (0-1); LYMPHOCYTES ABSOLUTE AUTO 0.76 K/mm3 (0.84-5.20); LYMPHOCYTES PERCENT AUTO 8 % (21-46); MONOCYTES ABSOLUTE AUTO 1.02 K/mm3 (0.16-1.47); MONOCYTES PERCENT AUTO 10 % (4-13); Mean Corpuscular HGB Conc 29.1 g/dL (31.5-36.5); Mean Corpuscular Volume 107 fL (80-100); Mean Platelet Volume 10.2 fL (9.1-12.4); NEUTROPHILS ABSOLUTE AUTO 7.93 K/mm3 (1.96-9.15); NEUTROPHILS PERCENT AUTO 81 % (41-73); Platelet Count 179 K/mm3 (150-400); RDW Coefficient Variation 15.7 % (11.7-14.2); RDW Standard Deviation 61.4 fL (35.1-46.3); Red Blood Cell Count 3.81 M/mm3 (3.80-5.20); White Blood Cell Count 9.77 K/mm3 (4.00-11.30)
--- NOTE | 2024-09-20 06:05 | NUR ---
Pt slept intermitently, she is A&O x3, but forgetfull. Pt was difficult to wake at HS, meds held. remains on O2 6L high flow, wound care done on days, awaiting PT eval. CBG at HS 146, no coverage needed.
[2024-09-20 06:33] LABS: Albumin, Blood 2.9 g/dL (3.4-5.0); Albumin/Globulin Ratio 0.8 (0.8-1.8); Bilirubin, Total 0.4 mg/dL (0.1-1.0); Calcium, Blood 9.3 mg/dL (8.5-10.1); Creatinine, Blood 0.65 mg/dL (0.40-1.00); Globulin, Blood 3.5 g/dL (2.2-4.0); Total Protein, Blood 6.4 g/dL (6.4-8.2)
[2024-09-20 07:16] VITALS: BP 171/79
[2024-09-20] MEDS ORDERED: Lactobacil 2-S.Thermo-Bifido 1 1 Cap PO SCH (09:00)
[2024-09-20 11:43] VITALS: BP 148/97
[2024-09-20] MEDS ORDERED: Vancomycin HCL 1,500 MG in NS 250 ML IV SCH (13:00)
[2024-09-20 16:03] VITALS: BP 153/73
[2024-09-20] MEDS ORDERED: CeFAZolin Sodium 1,000 MG in NS 50 ML IV SCH (18:00)
--- NOTE | 2024-09-20 18:09 | NUR ---
SHIFT SUMMARY PT A&Ox4, CALLS AND COMMUNICATES NEEDS APPROPRIATELY. BP ELEVATED AT START OF SHIFT, MANAGED WITH SCHEDULED BP MEDICATION, NOT ON TELE, DENIES CP/PRESSURE. SpO2> 90% ON 3L VIA NC, DENIES SOB. NO C/O PAIN. CONTINENT OF URINE AND BOWEL. PT DROWSY THIS EVENING, EXPRESSED IMPORTANCE OF WEARING BIPAP THROUGHOUT NIGHT. NO OTHER EVENTS, WILL REPORT TO ONCOMING RN.
[2024-09-20 20:11] VITALS: BP 157/79
[2024-09-21 07:11] VITALS: BP 143/81
[2024-09-21 15:20] VITALS: BP 135/78
--- NOTE | 2024-09-21 16:12 | NUR ---
DR STRANGE ASSESSED WOUND, RECOMMENDED WOUND CARE CONSULT BY DR TARIQ, THIS WAS DONE, LEFT MESSAGE. WOUND CARE PERFORMED PER ORDER THIS SHIFT.
[2024-09-21 19:41] VITALS: BP 149/73
[2024-09-22 05:26] VITALS: BP 146/80
[2024-09-22 05:28] LABS: BASOPHILS ABSOLUTE AUTO 0.01 K/mm3 (0.00-0.23); BASOPHILS PERCENT AUTO 0 % (0-2); EOSINOPHILS ABSOLUTE AUTO 0.03 K/mm3 (0.00-0.68); EOSINOPHILS PERCENT AUTO 0 % (0-6); Hematocrit 41.6 % (33.0-51.0); Hemoglobin 12.4 g/dL (11.5-16.0); IMMATURE GRAN ABSOLUTE AUTO 0.04 K/mm3 (0.00-0.10); IMMATURE GRAN PERCENT AUTO 0 % (0-1); LYMPHOCYTES ABSOLUTE AUTO 0.95 K/mm3 (0.84-5.20); LYMPHOCYTES PERCENT AUTO 10 % (21-46); MONOCYTES ABSOLUTE AUTO 0.61 K/mm3 (0.16-1.47); MONOCYTES PERCENT AUTO 6 % (4-13); Mean Corpuscular HGB Conc 29.8 g/dL (31.5-36.5); Mean Corpuscular Volume 104 fL (80-100); Mean Platelet Volume 10.2 fL (9.1-12.4); NEUTROPHILS ABSOLUTE AUTO 8.23 K/mm3 (1.96-9.15); NEUTROPHILS PERCENT AUTO 83 % (41-73); Platelet Count 168 K/mm3 (150-400); RDW Coefficient Variation 15.6 % (11.7-14.2); RDW Standard Deviation 60.1 fL (35.1-46.3); White Blood Cell Count 9.87 K/mm3 (4.00-11.30)
--- NOTE | 2024-09-22 06:02 | NUR ---
SHIFT SUMMARY: Pt is admitted for acute on chronic respiratory failure and is a DNR. is alert and able to make needs known. Denies pain or discomfort when asked. On 4lpm via NC when not wearing the bipap. Wore the bipap off and on through the night.
[2024-09-22 06:10] LABS: Anion Gap 8 mmol/L (3-11); Blood Urea Nitrogen 36 mg/dL (8-24); Bun/Creatinine Ratio 54.6 (12.0-20.0); CO2, Blood 38 mmol/L (21-32); Calcium, Blood 9.4 mg/dL (8.5-10.1); Chloride, Blood 98 mmol/L (98-108); Creatinine, Blood 0.66 mg/dL (0.40-1.00); Glomerular Filtration Rate 91 (60-); Glucose, Blood 99 mg/dL (70-99); Phosphorus, Blood 2.8 mg/dL (2.5-4.9); Sodium, Blood 140 mmol/L (136-145)
[2024-09-22 07:54] VITALS: BP 150/65
[2024-09-22] MEDS ORDERED: PredniSONE 20 MG Tab PO SCH (09:00)
[2024-09-22 16:02] VITALS: BP 151/92
--- NOTE | 2024-09-22 19:17 | NUR ---
SHIFT SUMMARY PATIENT AMBULATING TO BATHROOM WELL THIS SHIFT, HAD BM. VOIDING WELL. TOLERATING ABX WELL. ON 2 LITERS NC. WOUND CARE PERFOMED, TOLERATED WELL. C/O BILATERAL NERVE PAIN, MEDICATED PER MAR. CONTINUES TO HAVE TREMORS AT BASELINE. A/O X4. ABLE TO MAKE NEEDS KNOWN. CARES ONGOING.
[2024-09-22 19:52] VITALS: BP 142/75
[2024-09-23 02:41] VITALS: BP 146/75
[2024-09-23 07:21] VITALS: BP 139/82
--- NOTE | 2024-09-23 07:24 | NUR ---
SHIFT SUMMARY: Pt is admitted for acute on chronic respiratory failure and is a DNR. is alert and able to make needs known. ADLs have been SBA. Denies pain or discomfort when asked. On 4lpm via NC when not wearing the bipap.
--- NOTE | 2024-09-23 07:25 | NUR ---
SHIFT SUMMARY: Pt is admitted for hyponatremia and is a full code. Is alert and able to make needs known. ADLs have been SBA. states that she does not have any pain when asked. Telly reports sinus in the high 90s
[2024-09-23 15:39] VITALS: BP 132/71
[2024-09-23] MEDS ORDERED: JUVEN PACKET1 EAC3 PO (16:24)
[2024-09-23] MEDS ORDERED: PRED20 PO (16:25)
[2024-09-23] MEDS ORDERED: IPRAT-ALBUT 0.5-3 ML INH (16:25)
[2024-09-23] MEDS ORDERED: PROBIOTIC1 EA13 PO (16:26)
[2024-09-23] MEDS ORDERED: CEPH500 PO (16:28)
--- NOTE | 2024-09-23 17:42 | NUR ---
DISCHARGE SUMMARY: PT DISCHARGED HOME TODAY WITH OXYGEN. PORTABLE O2 TANK DELIVERED AND SET TO 4 LPM VIA NC. PT EDUCATED ON USE BY SHERRI ACOSTA. PT V/U. SON HERE TO INTERIOR DECORATOR PT. PT/SON EDUCATED ON DISCHARGE INSTRUCTIONS, MEDICATIONS. PT/SON V/U. PT ASSISTED WITH GETTING DRESSED AND PACKING UP BELONGINGS. PT ESCORTED TO POV VIA WHEELCHAIR. PORTABLE O2 ON AN 4 LPM. SON TOOK BELONGINGS INCLUDING LAP TOP AND CELL PHONE. PT DENTURES WITH HER.
== END 2024-09-23 17:37 | disposition home health service (06) | DRG 189 ==
LOC: ER 08:51 → MEDS 13:36
PROVIDERS: Family Medicine; Nurse Practitioner Acute Care; Physician Assistant; ADMIT Family Medicine
PROC: 5A09457 Assistance with Respiratory Ventilation, 24-96 Consecutive Hours, Continuous Positive Airway Pressure (ICD-10-PCS; principal; 2024-09-19)
PROC: 5A0935A Assistance with Respiratory Ventilation, Less than 24 Consecutive Hours, High Flow/Velocity Cannula (ICD-10-PCS; 2024-09-19)
DX: J96.21 Acute and chronic respiratory failure with hypoxia (principal); J18.9 Pneumonia, unspecified organism; J44.1 Chronic obstructive pulmonary disease with (acute) exacerbation; L97.829 Non-pressure chronic ulcer of other part of left lower leg with unspecified severity; J44.0 Chronic obstructive pulmonary disease with (acute) lower respiratory infection; J96.22 Acute and chronic respiratory failure with hypercapnia; G20.A1 Parkinson's disease without dyskinesia, without mention of fluctuations; I48.0 Paroxysmal atrial fibrillation; Z66 Do not resuscitate; F51.04 Psychophysiologic insomnia; F41.8 Other specified anxiety disorders; G47.33 Obstructive sleep apnea (adult) (pediatric); Z96.611 Presence of right artificial shoulder joint; I35.0 Nonrheumatic aortic (valve) stenosis; I10 Essential (primary) hypertension; E78.5 Hyperlipidemia, unspecified; E11.51 Type 2 diabetes mellitus with diabetic peripheral angiopathy without gangrene; E11.622 Type 2 diabetes mellitus with other skin ulcer; M20.42 Other hammer toe(s) (acquired), left foot; L97.529 Non-pressure chronic ulcer of other part of left foot with unspecified severity; I83.028 Varicose veins of left lower extremity with ulcer other part of lower leg; Z88.5 Allergy status to narcotic agent; Z79.811 Long term (current) use of aromatase inhibitors; Z79.899 Other long term (current) drug therapy; Z79.84 Long term (current) use of oral hypoglycemic drugs; Z79.2 Long term (current) use of antibiotics; Z86.718 Personal history of other venous thrombosis and embolism; Z98.890 Other specified postprocedural states; Z90.710 Acquired absence of both cervix and uterus; Z90.49 Acquired absence of other specified parts of digestive tract; Z90.89 Acquired absence of other organs; Z98.42 Cataract extraction status, left eye; Z98.41 Cataract extraction status, right eye; Z87.891 Personal history of nicotine dependence; Z28.21 Immunization not carried out because of patient refusal
CPT/HCPCS: 0202U; 36415; 71046; 80053; 80069; 82803; 82947; 83036; 83605; 83880; 84145; 84484; 85025; 93005; 93010; 94640; 94660; 94664; 94760; 94761; 94762; 96374; 97110; 97162; 97165; 97530; 97535; 99285-25; A9270; J0295; J0690; J1650; J2919; J3370; J7040; J7050; J7512

== ENCOUNTER → 2024-10-04 | Outpatient (CLI) | payer OTHER ==
[~2024-10-04] MED LIST changes: +ACET500 PO; +ALBU90OI INH; +CEPH500 PO; +DESVENLAFAXINE100 MG PO; +INCRUSE ELLIPTA 62.5 INH; +IPRAT-ALBUT 0.5-3 ML INH; +JUVEN PACKET1 EAC3 PO; +Lovastatin10 MG PO; +OXYC5 PO; +PRED20 PO; +PROBIOTIC1 EA13 PO; +Robaxin750 MG PO; +Ventolin5 MG/1 ML INH; +[UNRECOGNIZED DRUG - OTHER] NEB
[2024-10-04 12:27] LABS: BASOPHILS ABSOLUTE AUTO 0.02 K/mm3 (0.00-0.23); BASOPHILS PERCENT AUTO 0 % (0-2); EOSINOPHILS ABSOLUTE AUTO 0.09 K/mm3 (0.00-0.68); EOSINOPHILS PERCENT AUTO 1 % (0-6); Hematocrit 38.9 % (33.0-51.0); Hemoglobin 11.8 g/dL (11.5-16.0); IMMATURE GRAN ABSOLUTE AUTO 0.03 K/mm3 (0.00-0.10); IMMATURE GRAN PERCENT AUTO 0 % (0-1); LYMPHOCYTES ABSOLUTE AUTO 0.79 K/mm3 (0.84-5.20); LYMPHOCYTES PERCENT AUTO 11 % (21-46); MONOCYTES ABSOLUTE AUTO 0.64 K/mm3 (0.16-1.47); MONOCYTES PERCENT AUTO 9 % (4-13); Mean Corpuscular HGB 31.1 pg (26.0-34.0); Mean Corpuscular HGB Conc 30.3 g/dL (31.5-36.5); Mean Corpuscular Volume 102 fL (80-100); Mean Platelet Volume 9.9 fL (9.1-12.4); NEUTROPHILS ABSOLUTE AUTO 5.98 K/mm3 (1.96-9.15); NEUTROPHILS PERCENT AUTO 79 % (41-73); Platelet Count 197 K/mm3 (150-400); RDW Coefficient Variation 14.3 % (11.7-14.2); RDW Standard Deviation 53.1 fL (35.1-46.3); White Blood Cell Count 7.55 K/mm3 (4.00-11.30)
[2024-10-04 12:30] LABS: Bun/Creatinine Ratio 22.1 (12.0-20.0); Calcium, Blood 8.8 mg/dL (8.5-10.1); Creatinine, Blood 0.68 mg/dL (0.40-1.00); Potassium, Blood 3.7 mmol/L (3.5-5.5)
== END | disposition home or self-care (01) ==
LOC: LAB SHORT 12:20 → LAB 12:20
PROVIDERS: Chiropractor
DX: R60.0 Localized edema (principal)
CPT/HCPCS: 80048; 83735; 85025; 85379

== ENCOUNTER 2024-10-22 07:22 | Emergency (ER) | payer OTHER ==
[~2024-10-22] VITALS: Ht 160 cm; Wt 111.1 kg
[2024-10-22 07:41] VITALS: BP 145/65
== END 2024-10-22 11:05 | disposition home or self-care (01) ==
LOC: ER 07:22
DX: Z76.89 Persons encountering health services in other specified circumstances (principal); G20.A1 Parkinson's disease without dyskinesia, without mention of fluctuations; I10 Essential (primary) hypertension; I48.0 Paroxysmal atrial fibrillation; E11.9 Type 2 diabetes mellitus without complications; J44.9 Chronic obstructive pulmonary disease, unspecified; G47.33 Obstructive sleep apnea (adult) (pediatric); F17.210 Nicotine dependence, cigarettes, uncomplicated; Z99.81 Dependence on supplemental oxygen; Z86.73 Personal history of transient ischemic attack (TIA), and cerebral infarction without residual deficits; Z86.718 Personal history of other venous thrombosis and embolism; Z88.5 Allergy status to narcotic agent; Z79.899 Other long term (current) drug therapy
CPT/HCPCS: 99282

== ENCOUNTER 2024-11-05 02:25 | Day surgery (SDC) | payer OTHER ==
[2024-11-05] MEDS ORDERED: Lidocaine HCl 4% Cream 5 GM ONE (14:09)
== END 2024-11-05 23:00 | disposition home or self-care (01) ==
LOC: WOUND 02:25
DX: I87.312 Chronic venous hypertension (idiopathic) with ulcer of left lower extremity (principal); L97.822 Non-pressure chronic ulcer of other part of left lower leg with fat layer exposed; I87.2 Venous insufficiency (chronic) (peripheral); M19.90 Unspecified osteoarthritis, unspecified site; J44.9 Chronic obstructive pulmonary disease, unspecified; G47.30 Sleep apnea, unspecified; Z87.891 Personal history of nicotine dependence
CPT/HCPCS: A6213; A9270; G0463

== ENCOUNTER 2024-11-13 01:59 | Day surgery (SDC) | payer OTHER ==
[2024-11-13] MEDS ORDERED: Lidocaine HCl 4% Cream 5 GM ONE (12:44)
== END 2024-11-13 23:00 | disposition home or self-care (01) ==
LOC: WOUND 01:59
DX: I87.312 Chronic venous hypertension (idiopathic) with ulcer of left lower extremity (principal); L97.822 Non-pressure chronic ulcer of other part of left lower leg with fat layer exposed; I87.2 Venous insufficiency (chronic) (peripheral); I73.9 Peripheral vascular disease, unspecified
CPT/HCPCS: A6213; A9270

== ENCOUNTER → 2024-11-27 | Day surgery (SDC) | payer OTHER ==
[~2024-11-27] MED LIST changes: +Lidocaine HCl 4% Cream 5 GM ONE
== END ==
LOC: WOUND 01:11
DX: I87.312 Chronic venous hypertension (idiopathic) with ulcer of left lower extremity (principal); L97.822 Non-pressure chronic ulcer of other part of left lower leg with fat layer exposed; I87.2 Venous insufficiency (chronic) (peripheral); I73.9 Peripheral vascular disease, unspecified
CPT/HCPCS: A6213; A9270

== ENCOUNTER 2024-12-04 00:56 | Day surgery (SDC) | payer OTHER ==
[~2024-12-04 00:56] MED LIST changes: -Lidocaine HCl 4% Cream 5 GM ONE
[2024-12-04] MEDS ORDERED: Lidocaine HCl 4% Cream 5 GM ONE (13:24)
== END 2024-12-04 23:00 | disposition home or self-care (01) ==
LOC: WOUND 00:56
DX: I87.312 Chronic venous hypertension (idiopathic) with ulcer of left lower extremity (principal); L97.822 Non-pressure chronic ulcer of other part of left lower leg with fat layer exposed; I87.2 Venous insufficiency (chronic) (peripheral); I73.9 Peripheral vascular disease, unspecified
CPT/HCPCS: A6213; A9270

== ENCOUNTER 2024-12-18 01:47 | Day surgery (SDC) | payer OTHER ==
[2024-12-18] MEDS ORDERED: Lidocaine HCl 4% Cream 5 GM ONE (13:37)
== END 2024-12-18 23:00 | disposition home or self-care (01) ==
LOC: WOUND 01:47
DX: I87.312 Chronic venous hypertension (idiopathic) with ulcer of left lower extremity (principal); L97.822 Non-pressure chronic ulcer of other part of left lower leg with fat layer exposed; I87.2 Venous insufficiency (chronic) (peripheral); I73.9 Peripheral vascular disease, unspecified
CPT/HCPCS: A6213; A9270; G0463

== ENCOUNTER 2025-01-10 03:46 | Day surgery (SDC) | payer OTHER ==
[2025-01-10] MEDS ORDERED: Lidocaine HCl 4% Cream 5 GM ONE (14:42)
== END 2025-01-10 23:00 | disposition home or self-care (01) ==
LOC: WOUND 03:46
DX: I87.312 Chronic venous hypertension (idiopathic) with ulcer of left lower extremity (principal); L97.821 Non-pressure chronic ulcer of other part of left lower leg limited to breakdown of skin; I87.2 Venous insufficiency (chronic) (peripheral); I73.9 Peripheral vascular disease, unspecified
CPT/HCPCS: A6213; A9270

== ENCOUNTER 2025-01-24 03:02 | Day surgery (SDC) | payer OTHER | END 2025-01-24 23:00 | disposition home or self-care (01) | LOC: WOUND 03:02 | DX: I87.312 Chronic venous hypertension (idiopathic) with ulcer of left lower extremity (principal); L97.922 Non-pressure chronic ulcer of unspecified part of left lower leg with fat layer exposed; I87.2 Venous insufficiency (chronic) (peripheral); I73.9 Peripheral vascular disease, unspecified | CPT/HCPCS: G0463 ==

== ENCOUNTER 2025-05-25 08:50 | Emergency (ER) | payer OTHER ==
[~2025-05-25] VITALS: Ht 162.6 cm; Wt 91.2 kg
[2025-05-25 08:52] VITALS: BP 145/94
[2025-05-25 09:32] LABS: BASOPHILS ABSOLUTE AUTO 0.03 K/mm3 (0.00-0.23); BASOPHILS PERCENT AUTO 0 % (0-2); EOSINOPHILS ABSOLUTE AUTO 0.14 K/mm3 (0.00-0.68); EOSINOPHILS PERCENT AUTO 2 % (0-6); Hematocrit 38.7 % (33.0-51.0); Hemoglobin 11.5 g/dL (11.5-16.0); IMMATURE GRAN ABSOLUTE AUTO 0.03 K/mm3 (0.00-0.10); IMMATURE GRAN PERCENT AUTO 0 % (0-1); LYMPHOCYTES ABSOLUTE AUTO 1.36 K/mm3 (0.84-5.20); LYMPHOCYTES PERCENT AUTO 20 % (21-46); MONOCYTES ABSOLUTE AUTO 0.71 K/mm3 (0.16-1.47); MONOCYTES PERCENT AUTO 10 % (4-13); Mean Corpuscular HGB Conc 29.7 g/dL (31.5-36.5); Mean Corpuscular Volume 98 fL (80-100); NEUTROPHILS ABSOLUTE AUTO 4.53 K/mm3 (1.96-9.15); NEUTROPHILS PERCENT AUTO 67 % (41-73); NRBC ABSOLUTE 0.00 K/mm3 (0.00-0.02); NRBC Auto 0.0 /100 WBC (0.0-0.2); Platelet Count 176 K/mm3 (150-400); RDW Coefficient Variation 14.0 % (11.7-14.2); RDW Standard Deviation 50.7 fL (35.1-46.3)
[2025-05-25 09:44] LABS: Alanine Aminotransfer (ALT/SGP 21.0 U/L (12-78); Albumin, Blood 3.5 g/dL (3.4-5.0); Albumin/Globulin Ratio 0.9 (0.8-1.8); Anion Gap 6.0 mmol/L (3-11); Aspartate Aminotrans (AST/SGOT 22.0 U/L (12-37); Bilirubin, Total 0.3 mg/dL (0.1-1.0); Blood Urea Nitrogen 29.0 mg/dL (8-24); CO2, Blood 33.0 mmol/L (21-32); Calcium, Blood 9.1 mg/dL (8.5-10.1); Chloride, Blood 107.0 mmol/L (98-108); Creatinine, Blood 0.88 mg/dL (0.40-1.00); Globulin, Blood 4.1 g/dL (2.2-4.0); Glucose, Blood 101.0 mg/dL (70-99); Potassium, Blood 4.3 mmol/L (3.5-5.5); Sodium, Blood 142.0 mmol/L (136-145); Total Protein, Blood 7.6 g/dL (6.4-8.2)
[2025-05-25] MEDS ORDERED: Ipratropium/Albuterol SulF 2.5-0.5MG/3 ML Amp INH ONE (10:35)
[2025-05-25] MEDS ORDERED: Atropine/Scopalam/Hyoscam/PB 5 ML UDC PO ONE (12:45)
[2025-05-25] MEDS ORDERED: Pantoprazole Sodium 40 MG Injection IV ONE (12:45)
[2025-05-25] MEDS ORDERED: Lidocaine 2% Viscous Soln 15 ML UDC PO ONE (12:45)
== END 2025-05-25 14:40 | disposition home or self-care (01) ==
LOC: ER 08:50
PROVIDERS: Student in an Organized Health Care Education/Training Program
DX: R09.A2 Foreign body sensation, throat (principal); J44.1 Chronic obstructive pulmonary disease with (acute) exacerbation; I48.0 Paroxysmal atrial fibrillation; I87.8 Other specified disorders of veins; G20.A1 Parkinson's disease without dyskinesia, without mention of fluctuations; I10 Essential (primary) hypertension; E11.9 Type 2 diabetes mellitus without complications; F17.210 Nicotine dependence, cigarettes, uncomplicated; Z88.5 Allergy status to narcotic agent; Z79.899 Other long term (current) drug therapy
CPT/HCPCS: 71046; 80053; 83690; 83880; 84484; 85025; 93005; 93010; 96374; 96375; 99285-25; A9270; J2470; J2919

== ENCOUNTER 2025-06-08 13:10 | Emergency (ER) | payer OTHER ==
[~2025-06-08] VITALS: Ht 162.6 cm; Wt 90.7 kg
[2025-06-08 13:12] VITALS: BP 140/63
[2025-06-08 13:40] LABS: BASOPHILS ABSOLUTE AUTO 0.02 K/mm3 (0.00-0.23); BASOPHILS PERCENT AUTO 0 % (0-2); EOSINOPHILS ABSOLUTE AUTO 0.25 K/mm3 (0.00-0.68); EOSINOPHILS PERCENT AUTO 4 % (0-6); Hematocrit 36.9 % (33.0-51.0); Hemoglobin 11.4 g/dL (11.5-16.0); IMMATURE GRAN ABSOLUTE AUTO 0.03 K/mm3 (0.00-0.10); IMMATURE GRAN PERCENT AUTO 0 % (0-1); LYMPHOCYTES ABSOLUTE AUTO 0.89 K/mm3 (0.84-5.20); LYMPHOCYTES PERCENT AUTO 13 % (21-46); MONOCYTES ABSOLUTE AUTO 0.58 K/mm3 (0.16-1.47); MONOCYTES PERCENT AUTO 8 % (4-13); Mean Corpuscular HGB Conc 30.9 g/dL (31.5-36.5); Mean Corpuscular Volume 96 fL (80-100); NEUTROPHILS ABSOLUTE AUTO 5.29 K/mm3 (1.96-9.15); NEUTROPHILS PERCENT AUTO 75 % (41-73); NRBC ABSOLUTE 0.00 K/mm3 (0.00-0.02); NRBC Auto 0.0 /100 WBC (0.0-0.2); Platelet Count 188 K/mm3 (150-400); RDW Coefficient Variation 14.6 % (11.7-14.2); RDW Standard Deviation 50.9 fL (35.1-46.3)
[2025-06-08 14:00] LABS: Alanine Aminotransfer (ALT/SGP 13.0 U/L (12-78); Albumin, Blood 3.5 g/dL (3.4-5.0); Albumin/Globulin Ratio 0.9 (0.8-1.8); Anion Gap 7.0 mmol/L (3-11); Aspartate Aminotrans (AST/SGOT 19.0 U/L (12-37); Bilirubin, Total 0.4 mg/dL (0.1-1.0); Blood Urea Nitrogen 21.0 mg/dL (8-24); CO2, Blood 34.0 mmol/L (21-32); Calcium, Blood 8.8 mg/dL (8.5-10.1); Chloride, Blood 105.0 mmol/L (98-108); Creatinine, Blood 0.8 mg/dL (0.40-1.00); Globulin, Blood 3.8 g/dL (2.2-4.0); Glucose, Blood 91.0 mg/dL (70-99); Potassium, Blood 4.0 mmol/L (3.5-5.5); Sodium, Blood 142.0 mmol/L (136-145); Total Protein, Blood 7.3 g/dL (6.4-8.2)
[2025-06-08] MEDS ORDERED: DOXY100 PO (15:39)
== END 2025-06-08 16:09 | disposition home or self-care (01) ==
LOC: ER 13:10
PROVIDERS: Emergency Medicine
DX: L03.115 Cellulitis of right lower limb (principal); R60.0 Localized edema; L97.829 Non-pressure chronic ulcer of other part of left lower leg with unspecified severity; I10 Essential (primary) hypertension; I48.0 Paroxysmal atrial fibrillation; E11.9 Type 2 diabetes mellitus without complications; J44.9 Chronic obstructive pulmonary disease, unspecified; G47.33 Obstructive sleep apnea (adult) (pediatric); G20.A1 Parkinson's disease without dyskinesia, without mention of fluctuations; F17.210 Nicotine dependence, cigarettes, uncomplicated; Z86.73 Personal history of transient ischemic attack (TIA), and cerebral infarction without residual deficits; Z88.5 Allergy status to narcotic agent; Z79.51 Long term (current) use of inhaled steroids; Z79.899 Other long term (current) drug therapy
CPT/HCPCS: 71045; 80053; 83880; 85025; 93005; 93010; 99284-25; A9270